=== PATIENT | female | born 1995 | race Caucasian/White ===

== ENCOUNTER 2023-08-23 10:45 | Emergency (ER) | payer BC ==
--- OUTSIDE RECORDS SUMMARY | 2023-08-23 10:53 | XMS REPORT | Continuity of Care Document ---
Author Name Unknown Address [address] [facility] [address] [place] [address] [facility] thconnect Address [address] [facility]. 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 Role Phone Makenzie Ferreira Primary Care Physician [phone] Doctor Unassigned, [place] Attending Clinician U navailable Lab, Ang - Db Attending Clinician Unavailable Olivia Cuevas Attending Clinician [phone] OLIVIA CASTRO Attending Clinician Unavailable MAR MARCIAL Attending Clinician UnavailMAR Beck Attending Clinician UnavailLEBRON Culver Attending Clinician Unavailable Lebron Douglas MD Attending Clinician [phone] Francois Boggs CRNA Attending Clinician [phone] Rachell Murphy MD Attending Clinician [phone] Ultrasound, [facility] Attending Clinician Unavaila Moreno Tubbs DOy Attending Clinician [phone] Makenzie Ferreira Attending Clinician [phone] Suhas Anderson MD Attending Clinician [phone] SUHAS ANDERSON Attending Clinician Unavailable Jeison MIRANDA, Eleanor Attending Clinician Unavailab MAKENZIE Garcia Attending Clinician Unavailable Nurse, [facility] Attending Clinician Un available DELMI SIMMONS Attending Clinician Unavailable G_Pappas Attending Clinician Unavailable Delmi Simmons PA-C Attending Clinician [phone] Only, [facility] Test Attending Clinician Unavailable 2, [facility] Attending Clinician Unavailable Deshaun Shore MD Attending Clinician Ultrasound, [facility] Mfm Attending Clinician Unavaila Francie Vital MD Attending Clinician [phone] [facility], [facility] Attending Clinician Unakalyan cheema Nurse, [facility] General Surgery Attending Clinician U navailable LEBRON DOUGLAS Admitting Clinician Unavailable Misael HAYES, Lebron Hutchinson Admitting Clinician [phone] Raman_Juan Ramon Admitting Clinician Unavailable Payers Payer Name Policy Type Policy Number Effective Date Expirati on Date Source [facility] - OUT OF STATE [id number] 2017 00:00:00 [place] [employer] [id number] 2022 00:00:00 [place] [id number] 2014 00:00:00 Problems Condition Name Condition Details Condition Category Status Onset Date Resolution Date Last Treatment Date Treating Clinician Comments Source Negative depression screening Negative depression screening Disease Active 3-03 00:00: 00 [facility] Encounter for care after hospital delivery Encounter for care after hospital delivery Disease Active 04-22 00:00: 00 [facility] Encounter for post surgical wound check Encounter for post surgical wound check Disease Active 04-22 00:00: 00 [facility] BMI 29.0-29.9, adult BMI 29.0-29.9, adult Disease Active 2-19 00:00: 00 [facility] Oral contracept ion initiation Oral contracept ion initiation Disease Active 2-06 00:00: 00 [facility] Liveborn infant, of cooper , born in hospital by delivery Liveborn , of cooper , born in hospital by delivery Disease Active 2-06 00:00: 00 [facility] Supervisio n of high-risk with insufficie nt care in third trimester Supervisio n of high-risk with insufficie nt care in third trimester Disease Active 2021-03 2-15 00:00: 00 [facility] Anxiety Anxiety Disease Active 1-06 00:00: 00 [facility] Depression , unspecifie d depression type Depression , unspecifie d depression type Disease Active 1-06 00:00: 00 [facility] 39 weeks gestation of 39 weeks gestation of Disease Active 2019-03 0-05 00:00: 00 [facility] Positive GBS test Positive GBS test Disease Active 2019-03 0-05 00:00: 00 [facility] Obesity (BMI 30-39.9) Obesity (BMI 30-39.9) Disease Active 6-24 00:00: 00 [facility] Vegetarian diet Vegetarian diet Disease Active 5-29 00:00: 00 [facility] Allergies, Adverse Reactions, Alerts Allergy Name Allergy Type Status Severity Reaction(s) Onset Date Inactive Date Treating Clinician Comments Source IBUPROFE N DRUG INGREDI Active N/V - 00:00: 00 [facility] Ibuprofe n Propensi ty to adverse reaction s Active Rash - 00:00: 00 [facility] PENICILL IN DRUG INGREDI Active Hallucinates 08-29 00:00: 00 [facility] Penicill in Propensi ty to adverse reaction s Active Hallucinatio ns 08-29 00:00: 00 [facility] Fentanyl Propensi ty to adverse reaction s Active Hallucinatio ns 03-08 00:00: 00 [facility] FENTANYL DRUG INGREDI Active Hallucinates 03-08 00:00: 00 [facility] Gelatin Propensi ty to adverse reaction s Active Other - See comments 04-24 00:00: 00 Vegetaria n and prefers not to have gelatin capsules [facility] GELATIN DRUG INGREDI Active Other-Cmnt 04-24 00:00: 00 [facility] Social History Social Habit Start Date Stop Date Quantity Comments Source ASSERTION 2021-07-22 00:00:00 [facility] Alcohol Std Drinks [facility] History SDOH Alcohol Comment Leadore o f [facility] History SDOH Alcohol Binge [facility] Alcohol intake 2023-05-23 00:00:00 2023-05-23 00:00:00 .29 /d [facility] Exposure to SARS-CoV-2 (event) 2022-04-24 00:00:00 2022-05-04 09:09:00 Not sure [facility] Tobacco use and exposure 2022-02-01 00:00:00 2022-02-01 00:00:00 Smokeless tobacco non-user [facility] History of Social function 2021-03-08 00:00:00 2021-03-08 00:00:00 [facility] Tobacco Comment 2021-03-08 00:00:00 2021-03-08 00:00:00 vaping daily [facility] History SDOH Alcohol Frequency 2019-05-06 00:00:00 2019-05-06 00:00:00 1 [facility] Sex Assigned At 1995 00:00:00 1995 00:00:00 [facility] Smoking Status Start Date Stop Date Source Never smoked tobacco [facility] Current every day smoker 2021-03-08 00:00:00 [facility] Medications Ordered Medication Name Filled Medication Name Start Date Stop Date Current Medication? Ordering Clinician Indication Dosage Frequency Signature (SIG) Comments Components Source norethindro ne (ORTHO MICRONOR) 0.35 mg tablet 3- 00:00: 00 05-22 00:00 :00 No [id number] .35mg Take 1 tablet by mouth in the morning. [facility] ibuprofen (IBU) tablet 600 mg 2- 18:00: 00 Yes 600mg 600 mg, Oral, Q6H ABX, First dose on Sat04/11/22 at 1200, Until Discontinu ed, Routine [facility] vit,judi 74/iron/fol ic ( VITAMIN 1+1 ORAL) 2 06:30: 19 04-11 00:00 :00 No Take by mouth. [facility] vitamin w/FA tablet 2- 00:00: 00 Yes [id number] 1{tbl} Take 1 tablet by mouth in the morning. [facility] vitamin w/FA tablet 04-11 00:00: 00 Yes [id number] 1{tbl} Take 1 tablet by mouth in the morning. [facility] acetaminoph en 325 mg tablet 2- 00:00: 00 05-22 00:00 :00 No [id number] 650mg Take 2 tablets by mouth every 6 (six) hours as needed for Pain (scale 1-3) or Pain (scale 4-6). [facility] docusate 100 mg capsule 2- 00:00: 00 05-22 00:00 :00 No [id number] 200mg Take 2 capsules by mouth once daily as needed for Constipati on. [facility] ferrous sulfate 325 mg (65 mg iron) tablet 2- 00:00: 00 05-22 00:00 :00 No [id number] 325mg Take 1 tablet by mouth in the morning and 1 tablet in the evening. [facility] ibuprofen 600 mg tablet 2-08 00:00: 00 05-22 00:00 :00 No [id number] 600mg Take 1 tablet by mouth every 6 (six) hours as needed (Pain). Take with food or milk. [facility] HYDROcodone -acetaminop hen 5-325 mg tablet 04-11 00:00: 00 04-19 05:59 :00 No [id number] 1{tbl} Take 1 tablet by mouth every 6 (six) hours as needed for Pain (scale 7-10) (Alternate with Ibuprofen) for up to 7 days. Indication s: acute pain [facility] gabapentin 300 mg capsule 04-11 00:00: 00 04-17 05:59 :00 No [id number] 300mg Take 1 capsule by mouth in the morning and 1 capsule at noon and 1 capsule in the evening. Do all this for 5 days. [facility] ketorolac (TORADOL) injection 30 mg 04-10 18:00: 00 04-11 17:59 :00 No 30mg 30 mg, Slow IV Push, Q6H ABX, 4 doses, First dose on Sat04/10/22 at 1200, Last dose on Sat04/11/22 at 0600, Routine [facility] HYDROcodone -acetaminop hen (NORCO 5) 5-325 mg tablet 1 tablet 04-10 15:00: 00 Yes 1{tbl} 1 tablet, Oral, Q6HPRN, Starting on Sat04/10/22 at 0900, Until Discontinu ed, Routine, Pain (scale 7-10), Alternate with Ibuprofen [facility] acetaminoph en (TYLENOL) tablet 650 mg 04-10 15:00: 00 Yes 650mg 650 mg, Oral, Q6H ABX, First dose (after last modificati on) on Sat04/10/22 at 0900, Until Discontinu ed, Routine [facility] gabapentin (NEURONTIN) capsule 300 mg 04-10 14:00: 00 Yes 300mg 300 mg, Oral, TID, First dose on Sat04/10/22 at 0800, Until Discontinu ed, Routine [facility] lactated ringers IV infusion 1,000 mL 04-10 03:45: 00 04-10 05:01 :10 No 1000mL at 125 mL/hr, 1,000 mL, IV Infusion, ONCE, 1 dose, On Sat04/09/22 at 2145, Routine [facility] rho(D) immune globulin (RHOGAM) syringe 300 mcg 04-10 03:31: 57 Yes 300ug 300 mcg, Intramuscu lar, ONCE, For 1 dose, Conditiona l, Routine [facility] diphenhydrA MINE (BENADRYL) injection 25 mg 04-10 03:31: 52 Yes 25mg 25 mg, Slow IV Push, Q6HPRN, Starting on Sat04/09/22 at 2130, Until Discontinu ed, Routine, Itching [facility] diphenhydrA MINE (BENADRYL) tablet 25 mg 04-10 03:31: 52 Yes 25mg 25 mg, Oral, Q6HPRN, Starting on Sat04/09/22 at 2130, Until Discontinu ed, Routine, Sleep, Itching [facility] ondansetron (ZOFRAN (PF)) injection 4 mg 04-10 03:31: 52 Yes 4mg 4 mg, Slow IV Push, Q8HPRN, Starting on Sat04/09/22 at 2130, Until Discontinu ed, Routine, Nausea and Vomiting (N/V) [facility] bisacodyL (DULCOLAX) suppository 10 mg 04-10 03:31: 52 Yes 10mg 10 mg, Rectal, QDAILYPRN, Starting on Sat04/09/22 at 213, Until Discontinu ed, Routine, Constipati on [facility] simethicone (GAS RELIEF (SIMETHICON E)) chewable tablet 160 mg 04-10 03:31: 52 Yes 160mg 160 mg, Oral, PC+HSPRN, Starting on Sat04/09/22 at 2130, Until Discontinu ed, Routine, Gas [facility] docusate (COLACE) capsule 200 mg 04-10 03:31: 52 Yes 200mg 200 mg, Oral, QDAILYPRN, Starting on Sat04/09/22 at 2131, Until Discontinu ed, Routine, Constipati on [facility] magnesium hydroxide (MILK OF MAGNESIA) 400 mg/5 mL suspension 30 mL 04-10 03:31: 52 Yes 30mL 30 mL, Oral, QDAILYPRN, Starting on Sat04/09/22 at 2131, Until Discontinu ed, Routine, Constipati on [facility] lactated ringers IV infusion 1,000 mL 04-10 03:31: 52 Yes 1000mL at 125 mL/hr, 1,000 mL, IV Infusion, PRN, 1 dose, Starting on Sat04/09/22 at 2131, Until Discontinu ed, Routine [facility] azithromyci n (ZITHROMAX) 500 mg in NaCl 0.9% (NS) 250 mL IV piggyback 04-10 02:40: 00 04-10 02:46 :08 No IV Piggyback, CONTINUOUS PRN, Starting on Sat04/09/22 at 2040, Until Sat04/09/22 at 2045, Administer over 60 Minutes, 250 mL, Intra-op [facility] acetaminoph en ADULT (OFIRMEV) injection 04-10 02:30: 00 04-10 02:46 :08 No IV Infusion, Administer over 15 Minutes, ONCE INTRA PROCEDURE, Starting on Sat04/09/22 at 2030, Until Sat04/09/22 at 2045, Routine, Intra-op [facility] ondansetron (ZOFRAN (PF)) injection 04-10 02:14: 00 04-10 02:46 :08 No Slow IV Push, ONCE INTRA PROCEDURE, Starting on Sat04/09/22 at 2014, Until Sat04/09/22 at 2045, Routine, Intra-op [facility] oxytocin (PITOCIN) injection 04-10 02:12: 00 04-10 02:46 :08 No IV Piggyback, ONCE INTRA PROCEDURE, Starting on Sat04/09/22 at 2012, Until Sat04/09/22 at 2045, Routine, Intra-op [facility] LR 1000 mL + oxytocin 40 units 40 unit/ 1,000 mL IV Solution 04-10 02:11: 00 04-10 02:46 :08 No IV Infusion, CONTINUOUS PRN, Starting on Sat04/09/22 at 2010, Until Sat04/09/22 at 2045, Routine, Intra-op [facility] morpHINE PF (DURAMORPH- PF) injection 04-10 01:59: 00 04-10 02:46 :08 No Epidural, ONCE INTRA PROCEDURE, Starting on Sat04/09/22 at 1959, Until Sat04/09/22 at 2045, Routine, Intra-op [facility] ceFAZolin (ANCEF) injection 04-10 01:58: 00 04-10 02:46 :08 No Slow IV Push, ONCE INTRA PROCEDURE, Starting on Sat04/09/22 at 1958, Until Sat04/09/22 at 2045, LEONID, Intra-op [facility] lactated ringers IV infusion 04-10 01:47: 00 04-10 02:46 :08 No IV Infusion, CONTINUOUS PRN, Starting on Sat04/09/22 at 1947, Until Sat04/09/22 at 2045, Routine, Intra-op [facility] lidocaine-e pinephrine (XYLOCAINE W/EPINEPHRI NE) 2 %-1:200,000 injection 04-10 01:47: 00 04-10 02:46 :08 No Epidural, ONCE INTRA PROCEDURE, Starting on Sat04/09/22 at 1947, Until Sat04/09/22 at 2045, Routine, Intra-op [facility] azithromyci n (ZITHROMAX) 500 mg in NaCl 0.9% (NS) 250 mL VIAL-MATE IV piggyback 04-10 01:11: 47 04-11 01:10 :47 No 500mg 500 mg, IV Piggyback, O.R. HOLDING ONCE, Starting on Sat04/09/22 at 1911, Until Sat04/10/22 at 1910, Administer over 60 Minutes, 250 mL
Reas on for Anti-Infec tive: Surgical Prophylaxi s
Surgi judi Prophylaxi s: INSTRUCTIONAL INTERVENTIONIST
Duration of therapy: within 24 hours of surgery
Reason for Anti-Infec tive: Surgical Prophylaxi s [facility] ceFAZolin (ANCEF) 2,000 mg in NaCl 0.9% (NS) 100 mL MINI-BAG 04-10 01:11: 35 04-11 01:10 :35 No 2000mg 2,000 mg, IV Piggyback, O.R. HOLDING ONCE, Starting on Sat04/09/22 at 1911, Until Sat04/10/22 at 1910, Administer over 30 Minutes, 100 mL
Reas on for Anti-Infec tive: Surgical Prophylaxi s
French rgical Prophylaxi s: INSTRUCTIONAL INTERVENTIONIST
Duration of therapy: within 24 hours of surgery [facility] terbutaline (BRETHINE) injection 0.25 mg 04-09 22:23: 00 04-09 22:26 :00 No .25mg 0.25 mg, Subcutaneo us, ONCE, 1 dose, On Sat04/09/22 at 1630, Routine [facility] PIB fentaNYL-ro pivacaine 2 mcg/mL-0.1 % (PF) in NS 200 mL epidural infusion RTU 04-09 22:20: 00 04-10 02:46 :08 No Epidural, ONCE INTRA PROCEDURE, Starting on Sat04/09/22 at 1620, Until Sat04/09/22 at 2046, Routine, Intra-op [facility] vit,judi 74/iron/fol ic ( VITAMIN 1+1 ORAL) 04-09 19:43: 45 Yes Take by mouth. [facility] PIB fentaNYL-ro pivacaine 2 mcg/mL-0.1 % (PF) in NS 200 mL epidural infusion RTU 04-09 16:16: 00 04-10 02:46 :08 No Epidural, ONCE INTRA PROCEDURE, Starting on Sat04/09/22 at 1016, Until Sat04/09/22 at 2045, Routine, Intra-op [facility] lidocaine-e pinephrine (XYLOCAINE W/EPINEPHRI NE) 1.5 %-1:200,000 injection 04-09 16:15: 00 04-10 02:46 :08 No Intraderma l, ONCE INTRA PROCEDURE, Starting on Sat04/09/22 at 1015, Until Sat04/09/22 at 2045, Routine, Intra-op [facility] lidocaine 1% (XYLOCAINE) 100 mg/10 mL (1 %) injection 04-09 16:12: 00 04-10 02:46 :08 No Infiltrati on, ONCE INTRA PROCEDURE, Starting on Sat04/09/22 at 1012, Until Sat04/09/22 at 2045, Routine, Intra-op [facility] diphenhydrA MINE (BENADRYL) injection 50 mg 04-09 13:36: 20 04-09 16:29 :38 No 50mg 50 mg, Intravenou s, PRN, 3 doses, Starting on Sat04/09/22 at 0736, Until Sat04/09/22 at 1029, Routine, Itching [facility] oxytocin (PITOCIN) 30 units in NS 500 mL IV infusion 04-09 12:14: 07 04-10 03:32 :07 No 2mU/min at 2-40 mL/hr, IV Infusion, TITRATE, Starting on Sat04/09/22 at 0614, Until Sat04/09/22 at 2132, LEONID [facility] vancomycin (VANCOCIN) 1,500 mg in NaCl 0.9% (NS) 500 mL VIAL-MATE IV piggyback 04-09 11:30: 00 04-10 14:50 :16 No 20mg/kg 1,500 mg (rounded from 1,678 mg = 20 mg/kg ?84.9 kg), IV Piggyback, Q8H ABX, 4 doses, First dose on Sat04/09/22 at 0530, Last dose on Sat04/10/22 at 0530, Administer over 90 Minutes, 500 mL
Reas on for Anti-Infec tive: Documented Infection< br>Documen cr Infection Site: Pelvic
Duration of Therapy: Other (see Comments) [facility] lidocaine 1% (XYLOCAINE) 10 mg/mL (1 %) injection 50 mL 04-09 10:19: 48 Yes 50mL 50 mL, Infiltrati on, PRN - SEE INSTRUCTIO NS, Starting on Sat04/09/22 at 041, Until Discontinu ed, Routine, Local anesthesia , For laceration repair only as a local anesthetic as indicated. [facility] lactated ringers IV infusion 500 mL 04-09 10:19: 48 Yes 500mL at 999 mL/hr, 500 mL, IV Infusion, PRN - SEE INSTRUCTIO NS, Starting on Sat04/09/22 at 418, Until Discontinu ed, Routine [facility] D5W-LR IV infusion 1,000 mL 04-09 10:19: 48 Yes 1000mL at 1-125 mL/hr, IV Infusion, TITRATE, Starting on Sat04/09/22 at 041, Until Discontinu ed, Routine [facility] sodium citrate-cit paras acid (BICITRA) 500-334 mg/5 mL solution 30 mL 04-09 10:19: 48 04-10 01:40 :00 No 30mL 30 mL, Oral, PRE-PROCED URE ONCE, 1 dose, Starting on Sat04/09/22 at 418, Until Discontinu ed, Routine, Surgery/Pr ocedure [facility] vit,judi 74/iron/fol ic ( VITAMIN 1+1 ORAL) 04-09 04:12: 36 Yes Take by mouth. [facility] vit,judi 74/iron/fol ic ( VITAMIN 1+1 ORAL) 2021-03 16:03: 52 Yes Take by mouth. [facility] ondansetron 4 mg disintegrat ing tablet 09-06 00:00: 00 04-11 00:00 :00 No [id number] 4mg Take 1 tablet by mouth every 8 (eight) hours as needed for Nausea and Vomiting (N/V). [facility] vit,judi 74/iron/fol ic ( VITAMIN 1+1 ORAL) 6 14:43: 37 Yes Take by mouth. [facility] busPIRone 10 mg tablet 07-28 00:00: 00 05-22 00:00 :00 No [id number] 10mg Take 1 tablet by mouth 2 (two) times daily as needed for Other (anxiety). [facility] DULoxetine 30 mg capsule 07-28 00:00: 00 05-22 00:00 :00 No [id number] 30mg Take 1 capsule by mouth daily. [facility] busPIRone 10 mg tablet - 00:00: 00 07-28 00:00 :00 No [id number] 10mg Take 1 tablet by mouth 2 (two) times daily as needed for Other (anxiety). [facility] DULoxetine 30 mg capsule 0 4- 00:00: 00 07-28 00:00 :00 No [id number] 30mg Take 1 capsule by mouth daily. [facility] DULoxetine 30 mg capsule 0 - 00:00: 00 06-23 00:00 :00 No [id number] 30mg Take 1 capsule by mouth daily. [facility] busPIRone 10 mg tablet 0 - 00:00: 00 06-23 00:00 :00 No [id number] 10mg Take 1 tablet by mouth 2 (two) times daily as needed for Other (anxiety) for up to 45 days. [facility] Immunizations Ordered Immunization Name Filled Immunization Name Date Status Comments Source TDAP 2022-03-05 00:00:00 Completed [facility] TDAP 2022-03-05 00:00:00 Completed [facility] TDAP 2022-03-05 00:00:00 Completed [facility] TDAP 2022-03-05 00:00:00 Completed [facility] TDAP 2022-03-05 00:00:00 Completed [facility] TDAP 2022-03-05 00:00:00 Completed [facility] TDAP 2022-03-05 00:00:00 Completed [facility] TDAP 2022-03-05 00:00:00 Completed [facility] TDAP 2022-03-05 00:00:00 Completed [facility] TDAP 2022-03-05 00:00:00 Completed [facility] TDAP 2022-03-05 00:00:00 Completed [facility] TDAP 2022-03-05 00:00:00 Completed [facility] TDAP 2022-03-05 00:00:00 Completed [facility] TDAP 2022-03-05 00:00:00 Completed [facility] TDAP 2022-03-05 00:00:00 Completed [facility] TDAP 2022-03-05 00:00:00 Completed [facility] TDAP 2022-03-05 00:00:00 Completed [facility] TDAP 2022-03-05 00:00:00 Completed [facility] Influenza Virus Vaccine Quad .5 mL IM 6+ MO 2019-05-06 00:00:00 Completed [facility] Influenza Virus Vaccine Quad .5 mL IM 6+ MO 2019-05-06 00:00:00 Completed [facility] Influenza Virus Vaccine Quad .5 mL IM 6+ MO 2019-05-06 00:00:00 Completed [facility] Influenza Virus Vaccine Quad .5 mL IM 6+ MO 2019-05-06 00:00:00 Completed [facility] Influenza Virus Vaccine Quad .5 mL IM 6+ MO 2019-05-06 00:00:00 Completed [facility] Influenza Virus Vaccine Quad .5 mL IM 6+ MO 2019-05-06 00:00:00 Completed [facility] Influenza Virus Vaccine Quad .5 mL IM 6+ MO 2019-05-06 00:00:00 Completed [facility] Influenza Virus Vaccine Quad .5 mL IM 6+ MO 2019-05-06 00:00:00 Completed [facility] Influenza Virus Vaccine Quad .5 mL IM 6+ MO 2019-05-06 00:00:00 Completed [facility] Influenza Virus Vaccine Quad .5 mL IM 6+ MO 2019-05-06 00:00:00 Completed [facility] Influenza Virus Vaccine Quad .5 mL IM 6+ MO 2019-05-06 00:00:00 Completed [facility] Influenza Virus Vaccine Quad .5 mL IM 6+ MO 2019-05-06 00:00:00 Completed [facility] Influenza Virus Vaccine Quad .5 mL IM 6+ MO 2019-05-06 00:00:00 Completed [facility] Influenza Virus Vaccine Quad .5 mL IM 6+ MO 2019-05-06 00:00:00 Completed [facility] Influenza Virus Vaccine Quad .5 mL IM 6+ MO 2019-05-06 00:00:00 Completed [facility] Influenza Virus Vaccine Quad .5 mL IM 6+ MO 2019-05-06 00:00:00 Completed [facility] Influenza Virus Vaccine Quad .5 mL IM 6+ MO 2019-05-06 00:00:00 Completed [facility] Influenza Virus Vaccine Quad .5 mL IM 6+ MO 2019-05-06 00:00:00 Completed [facility] Influenza Virus Vaccine Quad .5 mL IM 6+ MO 2019-05-06 00:00:00 Completed [facility] Influenza Virus Vaccine Quad .5 mL IM 6+ MO 2019-05-06 00:00:00 Completed [facility] Influenza Virus Vaccine Quad .5 mL IM 6+ MO 2019-05-06 00:00:00 Completed [facility] Influenza Virus Vaccine Quad .5 mL IM 6+ MO 2019-05-06 00:00:00 Completed [facility] Influenza Virus Vaccine Quad .5 mL IM 6+ MO 2019-05-06 00:00:00 Completed [facility] Influenza Virus Vaccine Quad .5 mL IM 6+ MO 2019-05-06 00:00:00 Completed [facility] Influenza Virus Vaccine Quad .5 mL IM 6+ MO 2019-05-06 00:00:00 Completed [facility] Influenza Virus Vaccine Quad .5 mL IM 6+ MO 2019-05-06 00:00:00 Completed [facility] Influenza Virus Vaccine Quad .5 mL IM 6+ MO 2019-05-06 00:00:00 Completed [facility] Influenza Virus Vaccine Quad .5 mL IM 6+ MO 2019-05-06 00:00:00 Completed [facility] Influenza Virus Vaccine Quad .5 mL IM 6+ MO 2019-05-06 00:00:00 Completed [facility] Influenza Virus Vaccine Quad .5 mL IM 6+ MO 2019-05-06 00:00:00 Completed [facility] Influenza Virus Vaccine Quad .5 mL IM 6+ MO 2019-05-06 00:00:00 Completed [facility] Influenza Virus Vaccine Quad .5 mL IM 6+ MO 2019-05-06 00:00:00 Completed [facility] Influenza Virus Vaccine Quad .5 mL IM 6+ MO 2019-05-06 00:00:00 Completed [facility] Influenza Virus Vaccine Quad .5 mL IM 6+ MO 2019-05-06 00:00:00 Completed [facility] Influenza Virus Vaccine Quad .5 mL IM 6+ MO 2019-05-06 00:00:00 Completed [facility] HPV 2010-02-15 00:00:00 Completed [facility] HPV 2010-02-15 00:00:00 Completed [facility] HPV 2010-02-15 00:00:00 Completed [facility] HPV 2010-02-15 00:00:00 Completed [facility] HPV 2010-02-15 00:00:00 Completed [facility] HPV 2010-02-15 00:00:00 Completed [facility] HPV 2010-02-15 00:00:00 Completed [facility] HPV 2010-02-15 00:00:00 Completed [facility] HPV 2010-02-15 00:00:00 Completed [facility] HPV 2010-02-15 00:00:00 Completed [facility] HPV 2010-02-15 00:00:00 Completed [facility] HPV 2010-02-15 00:00:00 Completed [facility] HPV 2010-02-15 00:00:00 Completed [facility] HPV 2010-02-15 00:00:00 Completed [facility] HPV 2010-02-15 00:00:00 Completed [facility] HPV 2010-02-15 00:00:00 Completed [facility] [facility]15 [facility]:00 [facility] HPV 2010-02-15 00:00:00 Completed [facility] HPV 2010-02-15 00:00:00 Completed [facility] HPV 2010-02-15 00:00:00 Completed [facility] HPV 2010-02-15 00:00:00 Completed [facility] HPV 2010-02-15 00:00:00 Completed [facility] HPV 2010-02-15 00:00:00 Completed [facility] HPV 2010-02-15 00:00:00 Completed [facility] HPV 2010-02-15 00:00:00 Completed [facility] Varicella (varivax)(chicken pox) 2009-10-20 00:00:00 Completed [facility] TDAP 2009-10-20 00:00:00 Completed [facility] Meningococcal Polysaccharide (groups A, C, Y and W-135) conjugate vaccine (MCV4P) 2009-10-20 00:00:00 Completed [facility] HPV 2009-10-20 00:00:00 Completed [facility] HEPATITIS A 2009-10-20 00:00:00 Completed [facility] Varicella (varivax)(chicken pox) 2009-10-20 00:00:00 Completed [facility] TDAP 2009-10-20 00:00:00 Completed [facility] Meningococcal Polysaccharide (groups A, C, Y and W-135) conjugate vaccine (MCV4P) 2009-10-20 00:00:00 Completed [facility] HPV 2009-10-20 00:00:00 Completed [facility] HEPATITIS A 2009-10-20 00:00:00 Completed [facility] Varicella (varivax)(chicken pox) 2009-10-20 00:00:00 Completed [facility] TDAP 2009-10-20 00:00:00 Completed [facility] Meningococcal Polysaccharide (groups A, C, Y and W-135) conjugate vaccine (MCV4P) 2009-10-20 00:00:00 Completed [facility] HPV 2009-10-20 00:00:00 Completed [facility] HEPATITIS A 2009-10-20 00:00:00 Completed [facility] Varicella (varivax)(chicken pox) 2009-10-20 00:00:00 Completed [facility] TDAP 2009-10-20 00:00:00 Completed [facility] Meningococcal Polysaccharide (groups A, C, Y and W-135) conjugate vaccine (MCV4P) 2009-10-20 00:00:00 Completed [facility] HPV 2009-10-20 00:00:00 Completed [facility] HEPATITIS A 2009-10-20 00:00:00 Completed [facility] Varicella (varivax)(chicken pox) 2009-10-20 00:00:00 Completed [facility] TDAP 2009-10-20 00:00:00 Completed [facility] Meningococcal Polysaccharide (groups A, C, Y and W-135) conjugate vaccine (MCV4P) 2009-10-20 00:00:00 Completed [facility] HPV 2009-10-20 00:00:00 Completed [facility] HEPATITIS A 2009-10-20 00:00:00 Completed [facility] Varicella (varivax)(chicken pox) 2009-10-20 00:00:00 Completed [facility] TDAP 2009-10-20 00:00:00 Completed [facility] Meningococcal Polysaccharide (groups A, C, Y and W-135) conjugate vaccine (MCV4P) 2009-10-20 00:00:00 Completed [facility] HPV 2009-10-20 00:00:00 Completed [facility] HEPATITIS A 2009-10-20 00:00:00 Completed [facility] Varicella (varivax)(chicken pox) 2009-10-20 00:00:00 Completed [facility] TDAP 2009-10-20 00:00:00 Completed [facility] Meningococcal Polysaccharide (groups A, C, Y and W-135) conjugate vaccine (MCV4P) 2009-10-20 00:00:00 Completed [facility] HPV 2009-10-20 00:00:00 Completed [facility] HEPATITIS A 2009-10-20 00:00:00 Completed [facility] Varicella (varivax)(chicken pox) 2009-10-20 00:00:00 Completed [facility] TDAP 2009-10-20 00:00:00 Completed [facility] Meningococcal Polysaccharide (groups A, C, Y and W-135) conjugate vaccine (MCV4P) 2009-10-20 00:00:00 Completed [facility] HPV 2009-10-20 00:00:00 Completed [facility] HEPATITIS A 2009-10-20 00:00:00 Completed [facility] Varicella (varivax)(chicken pox) 2009-10-20 00:00:00 Completed [facility] TDAP 2009-10-20 00:00:00 Completed [facility] Meningococcal Polysaccharide (groups A, C, Y and W-135) conjugate vaccine (MCV4P) 2009-10-20 00:00:00 Completed [facility] HPV 2009-10-20 00:00:00 Completed [facility] HEPATITIS A 2009-10-20 00:00:00 Completed [facility] Varicella (varivax)(chicken pox) 2009-10-20 00:00:00 Completed [facility] TDAP 2009-10-20 00:00:00 Completed [facility] Meningococcal Polysaccharide (groups A, C, Y and W-135) conjugate vaccine (MCV4P) 2009-10-20 00:00:00 Completed [facility] HPV 2009-10-20 00:00:00 Completed [facility] HEPATITIS A 2009-10-20 00:00:00 Completed [facility] Varicella (varivax)(chicken pox) 2009-10-20 00:00:00 Completed [facility] TDAP 2009-10-20 00:00:00 Completed [facility] Meningococcal Polysaccharide (groups A, C, Y and W-135) conjugate vaccine (MCV4P) 2009-10-20 00:00:00 Completed [facility] HPV 2009-10-20 00:00:00 Completed [facility] HEPATITIS A 2009-10-20 00:00:00 Completed [facility] Varicella (varivax)(chicken pox) 2009-10-20 00:00:00 Completed [facility] TDAP 2009-10-20 00:00:00 Completed [facility] Meningococcal Polysaccharide (groups A, C, Y and W-135) conjugate vaccine (MCV4P) 2009-10-20 00:00:00 Completed [facility] HPV 2009-10-20 00:00:00 Completed [facility] HEPATITIS A 2009-10-20 00:00:00 Completed [facility] Varicella (varivax)(chicken pox) 2009-10-20 00:00:00 Completed [facility] TDAP 2009-10-20 00:00:00 Completed [facility] Meningococcal Polysaccharide (groups A, C, Y and W-135) conjugate vaccine (MCV4P) 2009-10-20 00:00:00 Completed [facility] HPV 2009-10-20 00:00:00 Completed [facility] HEPATITIS A 2009-10-20 00:00:00 Completed [facility] Varicella (varivax)(chicken pox) 2009-10-20 00:00:00 Completed [facility] TDAP 2009-10-20 00:00:00 Completed [facility] Meningococcal Polysaccharide (groups A, C, Y and W-135) conjugate vaccine (MCV4P) 2009-10-20 00:00:00 Completed [facility] HPV 2009-10-20 00:00:00 Completed [facility] HEPATITIS A 2009-10-20 00:00:00 Completed [facility] Varicella (varivax)(chicken pox) 2009-10-20 00:00:00 Completed [facility] TDAP 2009-10-20 00:00:00 Completed [facility] Meningococcal Polysaccharide (groups A, C, Y and W-135) conjugate vaccine (MCV4P) 2009-10-20 00:00:00 Completed [facility] HPV 2009-10-20 00:00:00 Completed [facility] HEPATITIS A 2009-10-20 00:00:00 Completed [facility] Varicella (varivax)(chicken pox) 2009-10-20 00:00:00 Completed [facility] TDAP 2009-10-20 00:00:00 Completed [facility] Meningococcal Polysaccharide (groups A, C, Y and W-135) conjugate vaccine (MCV4P) 2009-10-20 00:00:00 Completed [facility] HPV 2009-10-20 00:00:00 Completed [facility] HEPATITIS A 2009-10-20 00:00:00 Completed [facility] Varicella (varivax)(chicken pox) 2009-10-20 00:00:00 Completed [facility] TDAP 2009-10-20 00:00:00 Completed [facility] Meningococcal Polysaccharide (groups A, C, Y and W-135) conjugate vaccine (MCV4P) 2009-10-20 00:00:00 Completed [facility] HPV 2009-10-20 00:00:00 Completed [facility] HEPATITIS A 2009-10-20 00:00:00 Completed [facility] Varicella (varivax)(chicken pox) 2009-10-20 00:00:00 Completed [facility] TDAP 2009-10-20 00:00:00 Completed [facility] Meningococcal Polysaccharide (groups A, C, Y and W-135) conjugate vaccine (MCV4P) 2009-10-20 00:00:00 Completed [facility] HPV 2009-10-20 00:00:00 Completed [facility] HEPATITIS A 2009-10-20 00:00:00 Completed [facility] Varicella (varivax)(chicken pox) 2009-10-20 00:00:00 Completed [facility] TDAP 2009-10-20 00:00:00 Completed [facility] Meningococcal Polysaccharide (groups A, C, Y and W-135) conjugate vaccine (MCV4P) 2009-10-20 00:00:00 Completed [facility] HPV 2009-10-20 00:00:00 Completed [facility] HEPATITIS A 2009-10-20 00:00:00 Completed [facility] Varicella (varivax)(chicken pox) 2009-10-20 00:00:00 Completed [facility] TDAP 2009-10-20 00:00:00 Completed [facility] Meningococcal Polysaccharide (groups A, C, Y and W-135) conjugate vaccine (MCV4P) 2009-10-20 00:00:00 Completed [facility] HPV 2009-10-20 00:00:00 Completed [facility] HEPATITIS A 2009-10-20 00:00:00 Completed [facility] Varicella (varivax)(chicken pox) 2009-10-20 00:00:00 Completed [facility] TDAP 2009-10-20 00:00:00 Completed [facility] Meningococcal Polysaccharide (groups A, C, Y and W-135) conjugate vaccine (MCV4P) 2009-10-20 00:00:00 Completed [facility] HPV 2009-10-20 00:00:00 Completed [facility] HEPATITIS A 2009-10-20 00:00:00 Completed [facility] Varicella (varivax)(chicken pox) 2009-10-20 00:00:00 Completed [facility] TDAP 2009-10-20 00:00:00 Completed [facility] Meningococcal Polysaccharide (groups A, C, Y and W-135) conjugate vaccine (MCV4P) 2009-10-20 00:00:00 Completed [facility] HPV 2009-10-20 00:00:00 Completed [facility] HEPATITIS A 2009-10-20 00:00:00 Completed [facility] Varicella (varivax)(chicken pox) 2009-10-20 00:00:00 Completed [facility] TDAP 2009-10-20 00:00:00 Completed [facility] Meningococcal Polysaccharide (groups A, C, Y and W-135) conjugate vaccine (MCV4P) 2009-10-20 00:00:00 Completed [facility] HPV 2009-10-20 00:00:00 Completed [facility] HEPATITIS A 2009-10-20 00:00:00 Completed [facility] Varicella (varivax)(chicken pox) 2009-10-20 00:00:00 Completed [facility] TDAP 2009-10-20 00:00:00 Completed [facility] Meningococcal Polysaccharide (groups A, C, Y and W-135) conjugate vaccine (MCV4P) 2009-10-20 00:00:00 Completed [facility] HPV 2009-10-20 00:00:00 Completed [facility] HEPATITIS A 2009-10-20 00:00:00 Completed [facility] Varicella (varivax)(chicken pox) 2009-10-20 00:00:00 Completed [facility] TDAP 2009-10-20 00:00:00 Completed [facility] Meningococcal Polysaccharide (groups A, C, Y and W-135) conjugate vaccine (MCV4P) 2009-10-20 00:00:00 Completed [facility] HPV 2009-10-20 00:00:00 Completed [facility] HEPATITIS A 2009-10-20 00:00:00 Completed [facility] IPV 2001-12-17 00:00:00 Completed [facility] MMR 2001-12-17 00:00:00 Completed [facility] DTaP, Unspecified Formulation 2001-12-17 00:00:00 Completed [facility] IPV 2001-12-17 00:00:00 Completed [facility] MMR 2001-12-17 00:00:00 Completed [facility] DTaP, Unspecified Formulation 2001-12-17 00:00:00 Completed [facility] IPV 2001-12-17 00:00:00 Completed [facility] MMR 2001-12-17 00:00:00 Completed [facility] DTaP, Unspecified Formulation 2001-12-17 00:00:00 Completed [facility] IPV 2001-12-17 00:00:00 Completed [facility] MMR 2001-12-17 00:00:00 Completed [facility] DTaP, Unspecified Formulation 2001-12-17 00:00:00 Completed [facility] IPV 2001-12-17 00:00:00 Completed [facility] MMR 2001-12-17 00:00:00 Completed [facility] DTaP, Unspecified Formulation 2001-12-17 00:00:00 Completed [facility] IPV 2001-12-17 00:00:00 Completed [facility] MMR 2001-12-17 00:00:00 Completed [facility] DTaP, Unspecified Formulation 2001-12-17 00:00:00 Completed [facility] IPV 2001-12-17 00:00:00 Completed [facility] MMR 2001-12-17 00:00:00 Completed [facility] DTaP, Unspecified Formulation 2001-12-17 00:00:00 Completed [facility] IPV 2001-12-17 00:00:00 Completed [facility] MMR 2001-12-17 00:00:00 Completed [facility] DTaP, Unspecified Formulation 2001-12-17 00:00:00 Completed [facility] IPV 2001-12-17 00:00:00 Completed [facility] MMR 2001-12-17 00:00:00 Completed [facility] DTaP, Unspecified Formulation 2001-12-17 00:00:00 Completed [facility] IPV 2001-12-17 00:00:[address] [facility] MMR 2001-12-17 00:00:[address] [facility] DTaP, Unspecified Formulation 2001-12-17 00:00:00 Completed [facility] IPV 2001-12-17 00:00:00 Completed [facility] MMR 2001-12-17 00:00:00 Completed [facility] DTaP, Unspecified Formulation 2001-12-17 00:00:00 Completed [facility] IPV 2001-12-17 00:00:00 Completed [facility] MMR 2001-12-17 00:00:00 Completed [facility] DTaP, Unspecified Formulation 2001-12-17 00:00:00 Completed [facility] IPV 2001-12-17 00:00:00 Completed [facility] MMR 2001-12-17 00:00:00 Completed [facility] DTaP, Unspecified Formulation 2001-12-17 00:00:00 Completed [facility] IPV 2001-12-17 00:00:00 Completed [facility] MMR 2001-12-17 00:00:00 Completed [facility] DTaP, Unspecified Formulation 2001-12-17 00:00:00 Completed [facility] IPV 2001-12-17 00:00:00 Completed [facility] MMR 2001-12-17 00:00:00 Completed [facility] DTaP, Unspecified Formulation 2001-12-17 00:00:00 Completed [facility] IPV 2001-12-17 00:00:00 Completed [facility] MMR 2001-12-17 00:00:[address] [facility] DTaP, Unspecified Formulation 2001-12-17 00:00:00 Completed [facility] IPV 2001-12-17 00:00:00 Completed [facility] MMR 2001-12-17 00:00:00 Completed [facility] DTaP, Unspecified Formulation 2001-12-17 00:00:00 Completed [facility] IPV 2001-12-17 00:00:00 Completed [facility] MMR 2001-12-17 00:00:00 Completed [facility] DTaP, Unspecified Formulation 2001-12-17 00:00:00 Completed [facility] IPV 2001-12-17 00:00:00 Completed [facility] MMR 2001-12-17 00:00:[address] [facility] DTaP, Unspecified Formulation 2001-12-17 00:00:00 Completed [facility] IPV 2001-12-17 00:00:00 Completed [facility] MMR 2001-12-17 00:00:00 Completed [facility] DTaP, Unspecified Formulation 2001-12-17 00:00:00 Completed [facility] IPV 2001-12-17 00:00:00 Completed [facility] MMR 2001-12-17 00:00:00 Completed [facility] DTaP, Unspecified Formulation 2001-12-17 00:00:00 Completed [facility] IPV 2001-12-17 00:00:00 Completed [facility] MMR 2001-12-17 00:00:00 Completed [facility] DTaP, Unspecified Formulation 2001-12-17 00:00:00 Completed [facility] IPV 2001-12-17 00:00:00 Completed [facility] MMR 2001-12-17 00:00:00 Completed [facility] DTaP, Unspecified Formulation 2001-12-17 00:00:00 Completed [facility] IPV 2001-12-17 00:00:00 Completed [facility] MMR 2001-12-17 00:00:00 Completed [facility] DTaP, Unspecified Formulation 2001-12-17 00:00:00 Completed [facility] IPV 2001-12-17 00:00:00 Completed [facility] MMR 2001-12-17 00:00:00 Completed [facility] DTaP, Unspecified Formulation 2001-12-17 00:00:00 Completed [facility] Hep B, Adol or Pedi Dosage 1999-12-12 00:00:00 Completed [facility] DTP 1999-12-12 00:00:00 Completed [facility] Hib-HbOC 1999-12-12 00:00:00 Completed [facility] Hep B, Adol or Pedi Dosage 1999-12-12 00:00:00 Completed [facility] DTP 1999-12-12 00:00:00 Completed [facility] Hib-HbOC 1999-12-12 00:00:00 Completed [facility] Hep B, Adol or Pedi Dosage 1999-12-12 00:00:00 Completed [facility] DTP 1999-12-12 00:00:00 Completed [facility] Hib-HbOC 1999-12-12 00:00:00 Completed [facility] Hep B, Adol or Pedi Dosage 1999-12-12 00:00:00 Completed [facility] DTP 1999-12-12 00:00:00 Completed [facility] Hib-HbOC 1999-12-12 00:00:00 Completed [facility] Hep B, Adol or Pedi Dosage 1999-12-12 00:00:00 Completed [facility] DTP 1999-12-12 00:00:00 Completed [facility] Hib-HbOC 1999-12-12 00:00:00 Completed [facility] Hep B, Adol or Pedi Dosage 1999-12-12 00:00:00 Completed [facility] DTP 1999-12-12 00:00:00 Completed [facility] Hib-HbOC 1999-12-12 00:00:00 Completed [facility] Hep B, Adol or Pedi Dosage 1999-12-12 00:00:00 Completed [facility] DTP 1999-12-12 00:00:00 Completed [facility] Hib-HbOC 1999-12-12 00:00:00 Completed [facility] Hep B, Adol or Pedi Dosage 1999-12-12 00:00:00 Completed [facility] DTP 1999-12-12 00:00:00 Completed [facility] Hib-HbOC 1999-12-12 00:00:00 Completed [facility] Hep B, Adol or Pedi Dosage 1999-12-12 00:00:00 Completed [facility] DTP 1999-12-12 00:00:00 Completed [facility] Hib-HbOC 1999-12-12 00:00:00 Completed [facility] Hep B, Adol or Pedi Dosage 1999-12-12 00:00:00 Completed [facility] DTP 1999-12-12 00:00:00 Completed [facility] Hib-HbOC 1999-12-12 00:00:00 Completed [facility] Hep B, Adol or Pedi Dosage 1999-12-12 00:00:00 Completed [facility] DTP 1999-12-12 00:00:00 Completed [facility] Hib-HbOC 1999-12-12 00:00:00 Completed [facility] Hep B, Adol or Pedi Dosage 1999-12-12 00:00:00 Completed [facility] DTP 1999-12-12 00:00:00 Completed [facility] Hib-HbOC 1999-12-12 00:00:00 Completed [facility] Hep B, Adol or Pedi Dosage 1999-12-12 00:00:00 Completed [facility] DTP 1999-12-12 00:00:00 Completed [facility] Hib-HbOC 1999-12-12 00:00:00 Completed [facility] Hep B, Adol or Pedi Dosage 1999-12-12 00:00:00 Completed [facility] DTP 1999-12-12 00:00:00 Completed [facility] Hib-HbOC 1999-12-12 00:00:00 Completed [facility] Hep B, Adol or Pedi Dosage 1999-12-12 00:00:00 Completed [facility] DTP 1999-12-12 00:00:00 Completed [facility] Hib-HbOC 1999-12-12 00:00:00 Completed [facility] Hep B, Adol or Pedi Dosage 1999-12-12 00:00:00 Completed [facility] DTP 1999-12-12 00:00:00 Completed [facility] Hib-HbOC 1999-12-12 00:00:00 Completed [facility] Hep B, Adol or Pedi Dosage 1999-12-12 00:00:00 Completed [facility] DTP 1999-12-12 00:00:00 Completed [facility] Hib-HbOC 1999-12-12 00:00:00 Completed [facility] Hep B, Adol or Pedi Dosage 1999-12-12 00:00:00 Completed [facility] DTP 1999-12-12 00:00:00 Completed [facility] Hib-HbOC 1999-12-12 00:00:00 Completed [facility] Hep B, Adol or Pedi Dosage 1999-12-12 00:00:00 Completed [facility] DTP 1999-12-12 00:00:00 Completed [facility] Hib-HbOC 1999-12-12 00:00:00 Completed [facility] Hep B, Adol or Pedi Dosage 1999-12-12 00:00:00 Completed [facility] DTP 1999-12-12 00:00:00 Completed [facility] Hib-HbOC 1999-12-12 00:00:00 Completed [facility] Hep B, Adol or Pedi Dosage 1999-12-12 00:00:00 Completed [facility] DTP 1999-12-12 00:00:00 Completed [facility] Hib-HbOC 1999-12-12 00:00:00 Completed [facility] Hep B, Adol or Pedi Dosage 1999-12-12 00:00:00 Completed [facility] DTP 1999-12-12 00:00:00 Completed [facility] Hib-HbOC 1999-12-12 00:00:00 Completed [facility] Hep B, Adol or Pedi Dosage 1999-12-12 00:00:00 Completed [facility] DTP 1999-12-12 00:00:00 Completed [facility] Hib-HbOC 1999-12-12 00:00:00 Completed [facility] Hep B, Adol or Pedi Dosage 1999-12-12 00:00:00 Completed [facility] DTP 1999-12-12 00:00:00 Completed [facility] Hib-HbOC 1999-12-12 00:00:00 Completed [facility] Hep B, Adol or Pedi Dosage 1999-12-12 00:00:00 Completed [facility] DTP 1999-12-12 00:00:00 Completed [facility] Hib-HbOC 1999-12-12 00:00:00 Completed [facility] Varicella (varivax)(chicken pox) 1998-09-13 00:00:00 Completed [facility] 1998-09-13 00:00:00 Completed [facility] Varicella (varivax)(chicken pox) 1998-09-13 00:00:00 Completed [facility] 1998-09-13 00:00:00 Completed [facility] Varicella (varivax)(chicken pox) 1998-09-13 00:00:00 Completed [facility] 1998-09-13 00:00:00 Completed [facility] Varicella (varivax)(chicken pox) 1998-09-13 00:00:00 Completed [facility] 1998-09-13 00:00:00 Completed [facility] Varicella (varivax)(chicken pox) 1998-09-13 00:00:00 Completed [facility] 1998-09-13 00:00:00 Completed [facility] Varicella (varivax)(chicken pox) 1998-09-13 00:00:00 Completed [facility] 1998-09-13 00:00:00 Completed [facility] Varicella (varivax)(chicken pox) 1998-09-13 00:00:00 Completed [facility] 1998-09-13 00:00:00 Completed [facility] Varicella (varivax)(chicken pox) 1998-09-13 00:00:00 Completed [facility] 1998-09-13 00:00:00 Completed [facility] Varicella (varivax)(chicken pox) 1998-09-13 00:00:00 Completed [facility] 1998-09-13 00:00:00 Completed [facility] Varicella (varivax)(chicken pox) 1998-09-13 00:00:00 Completed [facility] 1998-09-13 00:00:00 Completed [facility] Varicella (varivax)(chicken pox) 1998-09-13 00:00:00 Completed [facility] 1998-09-13 00:00:00 Completed [facility] Varicella (varivax)(chicken pox) 1998-09-13 00:00:00 Completed [facility] 1998-09-13 00:00:00 Completed [facility] Varicella (varivax)(chicken pox) 1998-09-13 00:00:00 Completed [facility] 1998-09-13 00:00:00 Completed [facility] Varicella (varivax)(chicken pox) 1998-09-13 00:00:00 Completed [facility] 1998-09-13 00:00:00 Completed [facility] Varicella (varivax)(chicken pox) 1998-09-13 00:00:00 Completed [facility] 1998-09-13 00:00:00 Completed [facility] Varicella (varivax)(chicken pox) 1998-09-13 00:00:00 Completed [facility] 1998-09-13 00:00:00 Completed [facility] Varicella (varivax)(chicken pox) 1998-09-13 00:00:00 Completed [facility] 1998-09-13 00:00:00 Completed [facility] Varicella (varivax)(chicken pox) 1998-09-13 00:00:00 Completed [facility] 1998-09-13 00:00:00 Completed [facility] Varicella (varivax)(chicken pox) 1998-09-13 00:00:00 Completed [facility] 1998-09-13 00:00:00 Completed [facility] Varicella (varivax)(chicken pox) 1998-09-13 00:00:00 Completed [facility] 1998-09-13 00:00:00 Completed [facility] Varicella (varivax)(chicken pox) 1998-09-13 00:00:00 Completed [facility] 1998-09-13 00:00:00 [facility] Varicella (varivax)(chicken pox) 1998-09-13 00:00:00 Completed [facility] 1998-09-13 00:00:00 Completed [facility] Varicella (varivax)(chicken pox) 1998-09-13 00:00:00 Completed [facility] 1998-09-13 00:00:00 Completed [facility] Varicella (varivax)(chicken pox) 1998-09-13 00:00:00 Completed [facility] MMR 1998-09-13 00:00:00 Completed [facility] Varicella (varivax)(chicken pox) 1998-09-13 00:00:00 Completed [facility] MMR 1998-09-13 00:00:00 Completed [facility] IPV 1998-03-02 00:00:00 Completed [facility] Hib-HbOC 1998-03-02 00:00:00 Completed [facility] DTP 1998-03-02 00:00:00 Completed [facility] IPV 1998-03-02 00:00:00 Completed [facility] Hib-HbOC 1998-03-02 00:00:00 Completed [facility] DTP 1998-03-02 00:00:00 Completed [facility] IPV 1998-03-02 00:00:00 Completed [facility] Hib-HbOC 1998-03-02 00:00:00 Completed [facility] DTP 1998-03-02 00:00:00 Completed [facility] IPV 1998-03-02 00:00:00 Completed [facility] Hib-HbOC 1998-03-02 00:00:00 Completed [facility] DTP 1998-03-02 00:00:00 Completed [facility] IPV 1998-03-02 00:00:00 Completed [facility] Hib-HbOC 1998-03-02 00:00:00 Completed [facility] DTP 1998-03-02 00:00:00 Completed [facility] IPV 1998-03-02 00:00:00 Completed [facility] Hib-HbOC 1998-03-02 00:00:00 Completed [facility] DTP 1998-03-02 00:00:00 Completed [facility] IPV 1998-03-02 00:00:00 Completed [facility] Hib-HbOC 1998-03-02 00:00:00 Completed [facility] DTP 1998-03-02 00:00:00 Completed [facility] IPV 1998-03-02 00:00:00 Completed [facility] Hib-HbOC 1998-03-02 00:00:00 Completed [facility] DTP 1998-03-02 00:00:00 Completed [facility] IPV 1998-03-02 00:00:00 Completed [facility] Hib-HbOC 1998-03-02 00:00:00 Completed [facility] DTP 1998-03-02 00:00:00 Completed [facility] IPV 1998-03-02 00:00:00 Completed [facility] Hib-HbOC 1998-03-02 00:00:00 Completed [facility] DTP 1998-03-02 00:00:00 Completed [facility] IPV 1998-03-02 00:00:00 Completed [facility] Hib-HbOC 1998-03-02 00:00:00 Completed [facility] DTP 1998-03-02 00:00:00 Completed [facility] IPV 1998-03-02 00:00:00 Completed [facility] Hib-HbOC 1998-03-02 00:00:00 Completed [facility] DTP 1998-03-02 00:00:00 Completed [facility] IPV 1998-03-02 00:00:00 Completed [facility] Hib-HbOC 1998-03-02 00:00:00 Completed [facility] DTP 1998-03-02 00:00:00 Completed [facility] IPV 1998-03-02 00:00:00 Completed [facility] Hib-HbOC 1998-03-02 00:00:00 Completed [facility] DTP 1998-03-02 00:00:00 Completed [facility] IPV 1998-03-02 00:00:00 Completed [facility] Hib-HbOC 1998-03-02 00:00:00 Completed [facility] DTP 1998-03-02 00:00:00 Completed [facility] IPV 1998-03-02 00:00:00 Completed [facility] Hib-HbOC 1998-03-02 00:00:00 Completed [facility] DTP 1998-03-02 00:00:00 Completed [facility] IPV 1998-03-02 00:00:00 Completed [facility] Hib-HbOC 1998-03-02 00:00:00 Completed [facility] DTP 1998-03-02 00:00:00 Completed [facility] IPV 1998-03-02 00:00:00 Completed [facility] Hib-HbOC 1998-03-02 00:00:00 Completed [facility] DTP 1998-03-02 00:00:00 Completed [facility] IPV 1998-03-02 00:00:00 Completed [facility] Hib-HbOC 1998-03-02 00:00:00 Completed [facility] DTP 1998-03-02 00:00:00 Completed [facility] IPV 1998-03-02 00:00:00 Completed [facility] Hib-HbOC 1998-03-02 00:00:00 Completed [facility] DTP 1998-03-02 00:00:00 Completed [facility] IPV 1998-03-02 00:00:00 Completed [facility] Hib-HbOC 1998-03-02 00:00:00 Completed [facility] DTP 1998-03-02 00:00:00 Completed [facility] IPV 1998-03-02 00:00:00 Completed [facility] Hib-HbOC 1998-03-02 00:00:00 Completed [facility] DTP 1998-03-02 00:00:00 Completed [facility] IPV 1998-03-02 00:00:00 Completed [facility] Hib-HbOC 1998-03-02 00:00:00 Completed [facility] DTP 1998-03-02 00:00:00 Completed [facility] IPV 1998-03-02 00:00:00 Completed [facility] Hib-HbOC 1998-03-02 00:00:00 Completed [facility] DTP 1998-03-02 00:00:00 Completed [facility] IPV 1998-03-02 00:00:00 Completed [facility] Hib-HbOC 1998-03-02 00:00:00 Completed [facility] DTP 1998-03-02 00:00:00 Completed [facility] IPV 1998-01-17 00:00:00 Completed [facility] Hib-HbOC 1998-01-17 00:00:00 Completed [facility] DTP 1998-01-17 00:00:00 Completed [facility] IPV 1998-01-17 00:00:00 Completed [facility] Hib-HbOC 1998-01-17 00:00:00 Completed [facility] DTP 1998-01-17 00:00:00 Completed [facility] IPV 1998-01-17 00:00:00 Completed [facility] Hib-HbOC 1998-01-17 00:00:00 Completed [facility] DTP 1998-01-17 00:00:00 Completed [facility] IPV 1998-01-17 00:00:00 Completed [facility] Hib-HbOC 1998-01-17 00:00:00 Completed [facility] DTP 1998-01-17 00:00:00 Completed [facility] IPV 1998-01-17 00:00:00 Completed [facility] Hib-HbOC 1998-01-17 00:00:00 Completed [facility] DTP 1998-01-17 00:00:00 Completed [facility] IPV 1998-01-17 00:00:00 Completed [facility] Hib-HbOC 1998-01-17 00:00:00 Completed [facility] DTP 1998-01-17 00:00:00 Completed [facility] IPV 1998-01-17 00:00:00 Completed [facility] Hib-HbOC 1998-01-17 00:00:00 Completed [facility] DTP 1998-01-17 00:00:00 Completed [facility] IPV 1998-01-17 00:00:00 Completed [facility] Hib-HbOC 1998-01-17 00:00:[address] [facility] DTP 1998-01-17 00:00:00 Completed [facility] IPV 1998-01-17 00:00:00 Completed [facility] Hib-HbOC 1998-01-17 00:00:[address] [facility] DTP 1998-01-17 00:00:[address] [facility] IPV 1998-01-17 00:00:00 Completed [facility] Hib-HbOC 1998-01-17 00:00:00 Completed [facility] DTP 1998-01-17 00:00:00 Completed [facility] IPV 1998-01-17 00:00:00 Completed [facility] Hib-HbOC 1998-01-17 00:00:00 Completed [facility] DTP 1998-01-17 00:00:00 Completed [facility] IPV 1998-01-17 00:00:00 Completed [facility] Hib-HbOC 1998-01-17 00:00:00 Completed [facility] DTP 1998-01-17 00:00:00 Completed [facility] IPV 1998-01-17 00:00:00 Completed [facility] Hib-HbOC 1998-01-17 00:00:00 Completed [facility] DTP 1998-01-17 00:00:00 Completed [facility] IPV 1998-01-17 00:00:00 Completed [facility] Hib-HbOC 1998-01-17 00:00:00 Completed [facility] DTP 1998-01-17 00:00:00 Completed [facility] IPV 1998-01-17 00:00:00 Completed [facility] Hib-HbOC 1998-01-17 00:00:00 Completed [facility] DTP 1998-01-17 00:00:00 Completed [facility] IPV 1998-01-17 00:00:00 Completed [facility] Hib-HbOC 1998-01-17 00:00:00 Completed [facility] DTP 1998-01-17 00:00:00 Completed [facility] IPV 1998-01-17 00:00:00 Completed [facility] Hib-HbOC 1998-01-17 00:00:00 Completed [facility] DTP 1998-01-17 00:00:00 Completed [facility] IPV 1998-01-17 00:00:00 Completed [facility] Hib-HbOC 1998-01-17 00:00:00 Completed [facility] DTP 1998-01-17 00:00:00 Completed [facility] IPV 1998-01-17 00:00:00 Completed [facility] Hib-HbOC 1998-01-17 00:00:00 Completed [facility] DTP 1998-01-17 00:00:00 Completed [facility] IPV 1998-01-17 00:00:00 Completed [facility] Hib-HbOC 1998-01-17 00:00:00 Completed [facility] DTP 1998-01-17 00:00:00 Completed [facility] IPV 1998-01-17 00:00:00 Completed [facility] Hib-HbOC 1998-01-17 00:00:00 Completed [facility] DTP 1998-01-17 00:00:00 Completed [facility] IPV 1998-01-17 00:00:00 Completed [facility] Hib-HbOC 1998-01-17 00:00:00 Completed [facility] DTP 1998-01-17 00:00:00 Completed [facility] IPV 1998-01-17 00:00:00 Completed [facility] Hib-HbOC 1998-01-17 00:00:00 Completed [facility] DTP 1998-01-17 00:00:00 Completed [facility] IPV 1998-01-17 00:00:00 Completed [facility] Hib-HbOC 1998-01-17 00:00:00 Completed [facility] DTP 1998-01-17 00:00:00 Completed [facility] IPV 1998-01-17 00:00:00 Completed [facility] Hib-HbOC 1998-01-17 00:00:00 Completed [facility] DTP 1998-01-17 00:00:00 Completed [facility] IPV 1997 00:00:00 Completed [facility] Hib-HbOC 1997 00:00:00 Completed [facility] Hep B, Adol or Pedi Dosage 1997 00:00:00 Completed [facility] DTP 1997 00:00:00 Completed [facility] IPV 1997 00:00:00 Completed [facility] Hib-HbOC 1997 00:00:00 Completed [facility] Hep B, Adol or Pedi Dosage 1997 00:00:00 Completed [facility] DTP 1997 00:00:00 Completed [facility] IPV 1997 00:00:00 Completed [facility] Hib-HbOC 1997 00:00:00 Completed [facility] Hep B, Adol or Pedi Dosage 1997 00:00:00 Completed [facility] DTP 1997 00:00:00 Completed [facility] IPV 1997 00:00:00 Completed [facility] Hib-HbOC 1997 00:00:00 Completed [facility] Hep B, Adol or Pedi Dosage 1997 00:00:00 Completed [facility] DTP 1997 00:00:00 Completed [facility] IPV 1997 00:00:00 Completed [facility] Hib-HbOC 1997 00:00:00 Completed [facility] Hep B, Adol or Pedi Dosage 1997 00:00:00 Completed [facility] DTP 1997 00:00:00 Completed [facility] IPV 1997 00:00:00 Completed [facility] Hib-HbOC 1997 00:00:00 Completed [facility] Hep B, Adol or Pedi Dosage 1997 00:00:00 Completed [facility] DTP 1997 00:00:00 Completed [facility] IPV 1997 00:00:00 Completed [facility] Hib-HbOC 1997 00:00:00 Completed [facility] Hep B, Adol or Pedi Dosage 1997 00:00:00 Completed [facility] DTP 1997 00:00:00 Completed [facility] IPV 1997 00:00:00 Completed [facility] Hib-HbOC 1997 00:00:00 Completed [facility] Hep B, Adol or Pedi Dosage 1997 00:00:00 Completed [facility] DTP 1997 00:00:00 Completed [facility] IPV 1997 00:00:00 Completed [facility] Hib-HbOC 1997 00:00:00 Completed [facility] Hep B, Adol or Pedi Dosage 1997 00:00:00 Completed [facility] DTP 1997 00:00:00 Completed [facility] IPV 1997 00:00:00 Completed [facility] Hib-HbOC 1997 00:00:00 Completed [facility] Hep B, Adol or Pedi Dosage 1997 00:00:00 Completed [facility] DTP 1997 00:00:00 Completed [facility] IPV 1997 00:00:00 Completed [facility] Hib-HbOC 1997 00:00:00 Completed [facility] Hep B, Adol or Pedi Dosage 1997 00:00:00 Completed [facility] DTP 1997 00:00:00 Completed [facility] IPV 1997 00:00:00 Completed [facility] Hib-HbOC 1997 00:00:00 Completed [facility] Hep B, Adol or Pedi Dosage 1997 00:00:00 Completed [facility] DTP 1997 00:00:00 Completed [facility] IPV 1997 00:00:00 Completed [facility] Hib-HbOC 1997 00:00:00 Completed [facility] Hep B, Adol or Pedi Dosage 1997 00:00:00 Completed [facility] DTP 1997 00:00:00 Completed [facility] IPV 1997 00:00:00 Completed [facility] Hib-HbOC 1997 00:00:00 Completed [facility] Hep B, Adol or Pedi Dosage 1997 00:00:00 Completed [facility] DTP 1997 00:00:00 Completed [facility] IPV 1997 00:00:00 Completed [facility] Hib-HbOC 1997 00:00:00 Completed [facility] Hep B, Adol or Pedi Dosage 1997 00:00:00 Completed [facility] DTP 1997 00:00:00 Completed [facility] IPV 1997 00:00:00 Completed [facility] Hib-HbOC 1997 00:00:00 Completed [facility] Hep B, Adol or Pedi Dosage 1997 00:00:00 Completed [facility] DTP 1997 00:00:00 Completed [facility] IPV 1997 00:00:00 Completed [facility] Hib-HbOC 1997 00:00:00 Completed [facility] Hep B, Adol or Pedi Dosage 1997 00:00:00 Completed [facility] DTP 1997 00:00:00 Completed [facility] IPV 1997 00:00:00 Completed [facility] Hib-HbOC 1997 00:00:00 Completed [facility] Hep B, Adol or Pedi Dosage 1997 00:00:00 Completed [facility] DTP 1997 00:00:00 Completed [facility] IPV 1997 00:00:00 Completed [facility] Hib-HbOC 1997 00:00:00 Completed [facility] Hep B, Adol or Pedi Dosage 1997 00:00:00 Completed [facility] DTP 1997 00:00:00 Completed [facility] IPV 1997 00:00:00 Completed [facility] Hib-HbOC 1997 00:00:00 Completed [facility] Hep B, Adol or Pedi Dosage 1997 00:00:00 Completed [facility] DTP 1997 00:00:00 Completed [facility] IPV 1997 00:00:00 Completed [facility] Hib-HbOC 1997 00:00:00 Completed [facility] Hep B, Adol or Pedi Dosage 1997 00:00:00 Completed [facility] DTP 1997 00:00:00 Completed [facility] IPV 1997 00:00:00 Completed [facility] Hib-HbOC 1997 00:00:00 Completed [facility] Hep B, Adol or Pedi Dosage 1997 00:00:00 Completed [facility] DTP 1997 00:00:00 Completed [facility] IPV 1997 00:00:00 Completed [facility] Hib-HbOC 1997 00:00:00 Completed [facility] Hep B, Adol or Pedi Dosage 1997 00:00:00 Completed [facility] DTP 1997 00:00:00 Completed [facility] IPV 1997 00:00:00 Completed [facility] Hib-HbOC 1997 00:00:00 Completed [facility] Hep B, Adol or Pedi Dosage 1997 00:00:00 Completed [facility] DTP 1997 00:00:00 Completed [facility] IPV 1997 00:00:00 Completed [facility] Hib-HbOC 1997 00:00:00 Completed [facility] Hep B, Adol or Pedi Dosage 1997 00:00:00 Completed [facility] DTP 1997 00:00:00 Completed [facility] Hep B, Adol or Pedi Dosage 1997 00:00:00 Completed [facility] Hep B, Adol or Pedi Dosage 1997 00:00:00 Completed [facility] Hep B, Adol or Pedi Dosage 1997 00:00:00 Completed [facility] Hep B, Adol or Pedi Dosage 1997 00:00:00 Completed [facility] Hep B, Adol or Pedi Dosage 1997 00:00:00 Completed [facility] Hep B, Adol or Pedi Dosage 1997 00:00:00 Completed [facility] Hep B, Adol or Pedi Dosage 1997 00:00:00 Completed [facility] Hep B, Adol or Pedi Dosage 1997 00:00:00 Completed [facility] Hep B, Adol or Pedi Dosage 1997 00:00:00 Completed [facility] Hep B, Adol or Pedi Dosage 1997 00:00:00 Completed [facility] Hep B, Adol or Pedi Dosage 1997 00:00:00 Completed [facility] Hep B, Adol or Pedi Dosage 1997 00:00:00 Completed [facility] Hep B, Adol or Pedi Dosage 1997 00:00:00 Completed [facility] Hep B, Adol or Pedi Dosage 1997 00:00:00 Completed [facility] Hep B, Adol or Pedi Dosage 1997 00:00:00 Completed [facility] Hep B, Adol or Pedi Dosage 1997 00:00:00 Completed [facility] Hep B, Adol or Pedi Dosage 1997 00:00:00 Completed [facility] Hep B, Adol or Pedi Dosage 1997 00:00:00 Completed [facility] Hep B, Adol or Pedi Dosage 1997 00:00:00 Completed [facility] Hep B, Adol or Pedi Dosage 1997 00:00:00 Completed [facility] Hep B, Adol or Pedi Dosage 1997 00:00:00 Completed [facility] Hep B, Adol or Pedi Dosage 1997 00:00:00 Completed [facility] Hep B, Adol or Pedi Dosage 1997 00:00:00 Completed [facility] Hep B, Adol or Pedi Dosage 1997 00:00:00 Completed [facility] Hep B, Adol or Pedi Dosage 1997 00:00:00 Completed [facility] Influenza Virus Vaccine Quad .5 mL IM 6+ MO (FLUZONE/FLULAVAL/FL UARIX) Unknown Completed [facility] Varicella (varivax)(chicken pox) Unknown Completed [facility] Varicella (varivax)(chicken pox) Unknown Completed [facility] IPV Unknown Completed [facility] IPV Unknown Completed [facility] IPV Unknown Completed [facility] IPV Unknown Completed [facility] TDAP Unknown Completed [facility] MMR Unknown Completed [facility] MMR Unknown Completed [facility] Meningococcal Polysaccharide (groups A, C, Y and W-135) conjugate vaccine (MCV4P) Unknown Completed [facility] HPV Unknown Completed [facility] HPV Unknown Completed [facility] Hib-HbOC Unknown Completed [facility] Hib-HbOC Unknown Completed [facility] Hib-HbOC Unknown Completed [facility] Hib-HbOC Unknown Completed [facility] Hep B, Adol or Pedi Dosage Unknown Completed [facility] Hep B, Adol or Pedi Dosage Unknown Completed [facility] Hep B, Adol or Pedi Dosage Unknown Completed [facility] HEPATITIS A Unknown Completed [facility] DTP Unknown Completed [facility] DTP Unknown Completed [facility] DTP Unknown Completed [facility] DTP Unknown Completed [facility] DTaP, Unspecified Formulation Unknown Completed [facility] Influenza Virus Vaccine Quad .5 mL IM 6+ MO (FLUZONE/FLULAVAL/FL UARIX) Unknown Completed [facility] Varicella (varivax)(chicken pox) Unknown Completed [facility] Varicella (varivax)(chicken pox) Unknown Completed [facility] IPV Unknown Completed [facility] IPV Unknown Completed [facility] IPV Unknown Completed [facility] IPV Unknown Completed [facility] TDAP Unknown Completed [facility] MMR Unknown Completed [facility] MMR Unknown Completed [facility] Meningococcal Polysaccharide (groups A, C, Y and W-135) conjugate vaccine (MCV4P) Unknown Completed [facility] HPV Unknown Completed [facility] HPV Unknown Completed [facility] Hib-HbOC Unknown Completed [facility] Hib-HbOC Unknown Completed [facility] Hib-HbOC Unknown Completed [facility] Hib-HbOC Unknown Completed [facility] Hep B, Adol or Pedi Dosage Unknown Completed [facility] Hep B, Adol or Pedi Dosage Unknown Completed [facility] Hep B, Adol or Pedi Dosage Unknown Completed [facility] HEPATITIS A Unknown Completed [facility] DTP Unknown Completed [facility] DTP Unknown Completed [facility] DTP Unknown Completed [facility] DTP Unknown Completed [facility] DTaP, Unspecified Formulation Unknown Completed [facility] TDAP Unknown Completed [facility] Influenza Virus Vaccine Quad .5 mL IM 6+ MO (FLUZONE/FLULAVAL/FL UARIX) Unknown Completed [facility] Varicella (varivax)(chicken pox) Unknown Completed [facility] Varicella (varivax)(chicken pox) Unknown Completed [facility] IPV Unknown Completed [facility] IPV Unknown Completed [facility] IPV Unknown Completed [facility] IPV Unknown Completed [facility] TDAP Unknown Completed [facility] MMR Unknown Completed [facility] MMR Unknown Completed [facility] Meningococcal Polysaccharide (groups A, C, Y and W-135) conjugate vaccine (MCV4P) Unknown Completed [facility] HPV Unknown Completed [facility] HPV Unknown Completed [facility] Hib-HbOC Unknown Completed [facility] Hib-HbOC Unknown Completed [facility] Hib-HbOC Unknown Completed [facility] Hib-HbOC Unknown Completed [facility] Hep B, Adol or Pedi Dosage Unknown Completed [facility] Hep B, Adol or Pedi Dosage Unknown Completed [facility] Hep B, Adol or Pedi Dosage Unknown Completed [facility] HEPATITIS A Unknown Completed [facility] DTP Unknown Completed [facility] DTP Unknown Completed [facility] DTP Unknown Completed [facility] DTP Unknown Completed [facility] DTaP, Unspecified Formulation Unknown Completed [facility] TDAP Unknown Completed [facility] Influenza Virus Vaccine Quad .5 mL IM 6+ MO (FLUZONE/FLULAVAL/FL UARIX) Unknown Completed [facility] Varicella (varivax)(chicken pox) Unknown Completed [facility] Varicella (varivax)(chicken pox) Unknown Completed [facility] IPV Unknown Completed [facility] IPV Unknown Completed [facility] IPV Unknown Completed [facility] IPV Unknown Completed [facility] TDAP Unknown Completed [facility] MMR Unknown Completed [facility] MMR Unknown Completed [facility] Meningococcal Polysaccharide (groups A, C, Y and W-135) conjugate vaccine (MCV4P) Unknown Completed [facility] HPV Unknown Completed [facility] HPV Unknown Completed [facility] Hib-HbOC Unknown Completed [facility] Hib-HbOC Unknown Completed [facility] Hib-HbOC Unknown Completed [facility] Hib-HbOC Unknown Completed [facility] Hep B, Adol or Pedi Dosage Unknown Completed [facility] Hep B, Adol or Pedi Dosage Unknown Completed [facility] Hep B, Adol or Pedi Dosage Unknown Completed [facility] HEPATITIS A Unknown Completed [facility] DTP Unknown Completed [facility] DTP Unknown Completed [facility] DTP Unknown Completed [facility] DTP Unknown Completed [facility] DTaP, Unspecified Formulation Unknown Completed [facility] TDAP Unknown Completed [facility] Influenza Virus Vaccine Quad .5 mL IM 6+ MO (FLUZONE/FLULAVAL/FL UARIX) Unknown Completed [facility] Varicella (varivax)(chicken pox) Unknown Completed [facility] Varicella (varivax)(chicken pox) Unknown Completed [facility] IPV Unknown Completed [facility] IPV Unknown Completed [facility] IPV Unknown Completed [facility] IPV Unknown Completed [facility] TDAP Unknown Completed [facility] MMR Unknown Completed [facility] MMR Unknown Completed [facility] Meningococcal Polysaccharide (groups A, C, Y and W-135) conjugate vaccine (MCV4P) Unknown Completed [facility] HPV Unknown Completed [facility] HPV Unknown Completed [facility] Hib-HbOC Unknown Completed [facility] Hib-HbOC Unknown Completed [facility] Hib-HbOC Unknown Completed [facility] Hib-HbOC Unknown Completed [facility] Hep B, Adol or Pedi Dosage Unknown Completed [facility] Hep B, Adol or Pedi Dosage Unknown Completed [facility] Hep B, Adol or Pedi Dosage Unknown Completed [facility] HEPATITIS A Unknown Completed [facility] DTP Unknown Completed [facility] DTP Unknown Completed [facility] DTP Unknown Completed [facility] DTP Unknown Completed [facility] DTaP, Unspecified Formulation Unknown Completed [facility] TDAP Unknown Completed [facility] Influenza Virus Vaccine Quad .5 mL IM 6+ MO (FLUZONE/FLULAVAL/FL UARIX) Unknown Completed [facility] Varicella (varivax)(chicken pox) Unknown Completed [facility] Varicella (varivax)(chicken pox) Unknown Completed [facility] IPV Unknown Completed [facility] IPV Unknown Completed [facility] IPV Unknown Completed [facility] IPV Unknown Completed [facility] TDAP Unknown Completed [facility] MMR Unknown Completed [facility] MMR Unknown Completed [facility] Meningococcal Polysaccharide (groups A, C, Y and W-135) conjugate vaccine (MCV4P) Unknown Completed [facility] HPV Unknown Completed [facility] HPV Unknown Completed [facility] Hib-HbOC Unknown Completed [facility] Hib-HbOC Unknown Completed [facility] Hib-HbOC Unknown Completed [facility] Hib-HbOC Unknown Completed [facility] Hep B, Adol or Pedi Dosage Unknown Completed [facility] Hep B, Adol or Pedi Dosage Unknown Completed [facility] Hep B, Adol or Pedi Dosage Unknown Completed [facility] HEPATITIS A Unknown Completed [facility] DTP Unknown Completed [facility] DTP Unknown Completed [facility] DTP Unknown Completed [facility] DTP Unknown Completed [facility] DTaP, Unspecified Formulation Unknown Completed [facility] TDAP Unknown Completed [facility] Vital Signs Vital Name Observation Time Observation Value Comments S ource Systolic blood pressure 2023-05-23 14:18:00 101 mm[Hg] [facility] Diastolic blood pressure 2023-05-23 14:18:00 62 mm[Hg] [facility] Heart rate 2023-05-23 14:18:00 90 /min [facility] Body temperature 2023-05-23 14:18:00 36.72 Amanda [facility] Body height 2023-05-23 14:18:00 162.6 cm [facility] Body weight 2023-05-23 14:18:00 70.308 kg [facility] BMI 2023-05-23 14:18:00 26.61 kg/m2 [facility] Oxygen saturation in Arterial blood by Pulse oximetry 2023-05-23 14:18:00 100 /min [facility] Systolic blood pressure 2022-04-18 17:01:00 111 mm[Hg] [facility] Diastolic blood pressure 2022-04-18 17:01:00 76 mm[Hg] [facility] Heart rate 2022-04-18 17:01:00 88 /min [facility] Respiratory rate 2022-04-18 17:01:00 18 /min [facility] Body height 2022-04-18 17:01:00 162.6 cm [facility] Body weight 2022-04-18 17:01:00 78.926 kg [facility] BMI 2022-04-18 17:01:00 29.87 kg/m2 [facility] Systolic blood pressure 2022-04-11 17:00:00 112 mm[Hg] [facility] Diastolic blood pressure 2022-04-11 17:00:00 67 mm[Hg] [facility] Heart rate 2022-04-11 17:00:00 92 /min [facility] Body temperature 2022-04-11 17:00:00 36.83 Amanda [facility] Respiratory rate 2022-04-11 17:00:00 16 /min [facility] Oxygen saturation in Arterial blood by Pulse oximetry 2022-04-11 17:00:00 100 /min [facility] Body height 2022-04-09 10:15:00 162.6 cm [facility] Body weight 2022-04-09 10:15:00 83.915 kg [facility] BMI 2022-04-09 10:15:00 31.76 kg/m2 [facility] Respiratory rate 2022-04-10 02:40:00 27 /min [facility] Systolic blood pressure 2022-04-10 05:00:00 116 mm[Hg] [facility] Diastolic blood pressure 2022-04-10 05:00:00 70 mm[Hg] [facility] Heart rate 2022-04-10 05:00:00 91 /min [facility] Body temperature 2022-04-10 05:00:00 36.61 Amanda [facility] Respiratory rate 2022-04-10 05:00:00 14 /min [facility] Oxygen saturation in Arterial blood by Pulse oximetry 2022-04-10 05:00:00 99 /min [facility] Body height 2022-04-09 10:15:00 162.6 cm [facility] Body weight 2022-04-09 10:15:00 83.915 kg [facility] BMI 2022-04-09 10:15:00 31.76 kg/m2 [facility] Systolic blood pressure 2022-04-06 20:51:00 128 mm[Hg] [facility] Diastolic blood pressure 2022-04-06 20:51:00 79 mm[Hg] [facility] Heart rate 2022-04-06 20:51:00 111 /min [facility] Body temperature 2022-04-06 20:51:00 36.83 Amanda [facility] Body height 2022-04-06 20:51:00 162.6 cm [facility] Body weight 2022-04-06 20:51:00 84.913 kg [facility] BMI 2022-04-06 20:51:00 32.13 kg/m2 [facility] Systolic blood pressure 2022-03-30 19:09:00 118 mm[Hg] [facility] Diastolic blood pressure 2022-03-30 19:09:00 74 mm[Hg] [facility] Heart rate 2022-03-30 19:09:00 98 /min [facility] Body temperature 2022-03-30 19:09:00 36.61 Amanda [facility] Respiratory rate 2022-03-30 19:09:00 16 /min [facility] Body height 2022-03-30 19:09:00 162.6 cm [facility] Body weight 2022-03-30 19:09:00 85.548 kg [facility] BMI 2022-03-30 19:09:00 32.37 kg/m2 [facility] Oxygen saturation in Arterial blood by Pulse oximetry 2022-03-30 19:09:00 97 /min [facility] Systolic blood pressure 2022-03-23 17:51:00 124 mm[Hg] [facility] Diastolic blood pressure 2022-03-23 17:51:00 74 mm[Hg] [facility] Heart rate 2022-03-23 17:51:00 86 /min [facility] Body temperature 2022-03-23 17:51:00 36.78 Amanda [facility] Body height 2022-03-23 17:51:00 162.6 cm [facility] Body weight 2022-03-23 17:51:00 82.101 kg [facility] BMI 2022-03-23 17:51:00 31.07 kg/m2 [facility] Systolic blood pressure 2022-03-05 15:59:00 113 mm[Hg] [facility] Diastolic blood pressure 2022-03-05 15:59:00 69 mm[Hg] [facility] Heart rate 2022-03-05 15:59:00 88 /min [facility] Body temperature 2022-03-05 15:59:00 36.78 Amanda [facility] Respiratory rate 2022-03-05 15:59:00 18 /min [facility] Body height 2022-03-05 15:59:00 162.6 cm [facility] Body weight 2022-03-05 15:59:00 81.647 kg [facility] BMI 2022-03-05 15:59:00 30.90 kg/m2 [facility] Systolic blood pressure 2022-02-15 15:39:00 127 mm[Hg] [facility] Diastolic blood pressure 2022-02-15 15:39:00 69 mm[Hg] [facility] Heart rate 2022-02-15 15:39:00 85 /min [facility] Body temperature 2022-02-15 15:39:00 36.83 Amanda [facility] Respiratory rate 2022-02-15 15:39:00 16 /min [facility] Body height 2022-02-15 15:39:00 162.6 cm [facility] Body weight 2022-02-15 15:39:00 80.06 kg [facility] BMI 2022-02-15 15:39:00 30.30 kg/m2 [facility] Oxygen saturation in Arterial blood by Pulse oximetry 2022-02-15 15:39:00 100 /min [facility] Systolic blood pressure 2022-02-01 22:02:00 126 mm[Hg] [facility] Diastolic blood pressure 2022-02-01 22:02:00 77 mm[Hg] [facility] Heart rate 2022-02-01 22:02:00 83 /min [facility] Body temperature 2022-02-01 22:02:00 36.39 Amanda [facility] Respiratory rate 2022-02-01 22:02:00 18 /min [facility] Body height 2022-02-01 22:02:00 162.6 cm [facility] Body weight 2022-02-01 22:02:00 74.844 kg [facility] BMI 2022-02-01 22:02:00 28.32 kg/m2 [facility] Systolic blood pressure 2021-08-29 20:02:00 103 mm[Hg] [facility] Diastolic blood pressure 2021-08-29 20:02:00 59 mm[Hg] [facility] Heart rate 2021-08-29 20:02:00 79 /min [facility] Body temperature 2021-08-29 20:02:00 36.94 Amanda [facility] Respiratory rate 2021-08-29 20:02:00 18 /min [facility] Body height 2021-08-29 20:02:00 162.6 cm [facility] Body weight 2021-08-29 20:02:00 64.864 kg [facility] BMI 2021-08-29 20:02:00 24.55 kg/m2 [facility] Systolic blood pressure 2021-06-23 21:09:00 113 mm[Hg] [facility] Diastolic blood pressure 2021-06-23 21:09:00 76 mm[Hg] [facility] Heart rate 2021-06-23 21:09:00 84 /min [facility] Body height 2021-06-23 21:09:00 162.6 cm [facility] Body weight 2021-06-23 21:09:00 69.083 kg [facility] BMI 2021-06-23 21:09:00 26.14 kg/m2 [facility] Oxygen saturation in Arterial blood by Pulse oximetry 2021-06-23 21:09:00 98 /min [facility] Procedures Procedure Date / Time Performed Performing Clinician Source ASSIGNMENT OF BENEFITS 2023-05-23 13:58:55 Docto r Unassigned, [place] [facility] PATIENT FINANCIAL POLICY 2022-05-04 15:10:51 Doctor Unassigned, [place] [facility] CBC WITH DIFF 2022-04-10 10:28:00 Lebron Douglas [facility] CBC WITH DIFF 2022-04-10 10:28:00 Lebron Douglas [facility] CENTRAL NEURAXIAL BLOCK 2022-04-09 16:26:00 Mallika Boggs [facility] CBC WITH DIFF 2022-04-09 11:10:00 Lebron Douglas [facility] HEPATITIS B SURFACE ANTIGEN 2022-04-09 11:10:00 Lebron Douglas [facility] HB ABO GROUPING 2022-04-09 11:10:00 Lebron Douglas [facility] RHO (D) IMMUNE GLOBULIN 2022-04-09 11:10[facility] - RPR 2022-04-09 11:10:00 [facility] HIV 1/2 AG-AB WITH REFLEX 2022-04-09 11:10:00 [facility] WITH DIFF 2022-04-09 11:10:00 [facility] B SURFACE ANTIGEN 2022-04-09 11:10:00 Misael [facility] HB ABO GROUPING 2022-04-09 11:10:00 Douglas [facility] RHO (D) IMMUNE GLOBULIN 2022-04-09 11:10:00 [facility] - RPR 2022-04-09 11:10:00 [facility] HIV 1/2 AG-AB WITH REFLEX 2022-04-09 11:10:00 Lebron Douglas [facility] HOSPITAL ADMISSION 2022-04-09 06:01:00 Doctor Un assigned, [place] [facility] CONSENT/REFUSAL FOR DIAGNOSIS AND TREATMENT 2022-04-07 18:54:27 Doctor Unassigned, [place] [facility] POCT URINALYSIS W/O SPECIFIC GRAVITY 2022-04-06 00:00:00 Lebron Douglas [facility] POCT URINALYSIS W/O SPECIFIC GRAVITY 2022-03-30 00:00:00 [facility] >14 WEEKS US LIMITED 2022-03-23 18:33:20 [facility] D[facility] PRE-OP 2022-03-23 06:01:00 Doctor Unass igned, [place] [facility] POCT URINALYSIS W/O SPECIFIC GRAVITY 2022-03-23 00:00:00 Lebron Douglas [facility] TDAP VACCINE, >11 YRS, IM 2022-03-05 16:19:36 Mar Marcial [facility] POCT URINALYSIS W/O SPECIFIC GRAVITY 2022-03-05 00:00:00 Mar Marcial [facility] POCT URINALYSIS W/O SPECIFIC GRAVITY 2022-02-15 00:00:00 Mar Marcial [facility] DME/SUPPLY JUSTIFICATION 2022-02-13 06:01:00 Doc tor Unassigned, [place] [facility] AUTHORIZATION FOR RELEASE OF PHI 2021-10-02 05:01:00 Doctor Unassigned, [place] [facility] AUTHORIZATION FOR RELEASE OF PHI 2021-09-15 05:01:00 Doctor Unassigned, [place] [facility] <14 WEEKS US LIMITED 2021-08-29 22:22:30 Justin Suhas [facility] URINE DRUG (IMMUNOASSAY) - COMPREHENSIVE DRUG SCREEN 2021-08-29 21:58:00 Justin [facility] GC & CHLAMYDIA AMPLIFIED ASSAY 2021-08-29 21:58:00 Justin Suhas [facility] TRICHOMONAS AMPLIFIED ASSAY 2021-08-29 21:58:00 Justin Suhas [facility] INSTRUCTIONAL INTERVENTIONIST CLINIC ULTRASOUND 2021-08-29 05:01:00 Doc tor Unassigned, [place] [facility] POCT TEST 2021-08-29 00:00:00 Suhas Anderson Pat [facility] POCT URINALYSIS W/O SPECIFIC GRAVITY 2021-08-29 00:00:00 Justin Suhas [facility] SECTION Lebron Douglas [facility] SECTION Lebron Douglas [facility] Encounters Start Date/Time End Date/Time Encounter Type Admission Type Attending [facility] Care Department Encounter ID Source 2020-12-30 10:49:51 Outpatient P [facility] [id number] [facility] 2020-12-30 08:51:44 Outpatient P [facility] [id number] [facility] 2023-06-01 00:00:00 2023-06-01 00:00:00 Patient Secure Msg Doctor Unassigned, [place] [facility] 1.2.840.114 350.1.13.10 4.2.7.2.686 [id number] [facility] 2023-05-23 09:45:00 2023-05-23 10:00:00 Mixer Foam Rubber Visit Lab, Fernie Johnsonkimberly [facility] 1.84.114 350.1.13.10 4.2.7.2.686 [id number] [facility] 2023-05-23 09:00:00 2023-05-23 09:33:41 Outpatient R [facility] [id number] [facility] 2023-05-23 09:00:00 2023-05-23 09:33:41 [facility] 1.84.114 350.1.13.10 4.2.7.2.686 [id number] [facility] 2023-05-23 00:00:00 2023-05-23 00:00:00 Orders Only Doctor Unassigned, [place] [facility] 1.114 350.1.13.10 4.2.7.2.686 [id number] [facility] 2022-05-04 09:30:00 2022-05-04 10:08:23 [facility] [id number] [facility] 2022-05-04 09:30:00 2022-05-04 10:08:23 Routine Visit Mar Marcial [facility] 1.114 350.1.13.10 4.2.7.2.686 [id number] [facility] 2022-05-04 00:00:00 2022-05-04 00:00:00 Orders Only Doctor Unassigned, [place] [facility] 1.2.840.114 350.1.13.10 4.2.7.2.686 [id number] [facility] 2022-04-18 10:45:00 2022-04-18 11:15:25 Outpatient R [address]ON [facility] [facility] [id number] [facility] 2022-04-18 10:45:00 2022-04-18 11:15:25 Routine Visit Mar Marcial Lebron Douglas Jasper [facility] 1.2.840.114 350.1.13.10 4.2.7.2.686 [id number] [facility] 2022-04-09 04:00:00 2022-04-11 14:30:00 Inpatient P LEBRON DOUGLAS [facility] [id number] [facility] 2022-04-09 04:00:00 2022-04-11 14:30:00 Hospital Encounter Lebron Douglas [facility] 1.2.840.114 350.1.13.10 4.2.7.2.686 [id number] [facility] 2022-04-10 20:03:31 2022-04-10 20:03:31 Anesthesia Event Francois Bogsg [facility] 1.2.840.114 350.1.13.10 4.2.7.2.686 [id number] [facility] 2022-04-09 10:08:00 2022-04-09 20:46:00 Anesthesia Event Francois Boggs Rachell Murphy [facility] 1.2.840.114 350.1.13.10 4.2.7.2.686 [id number] [facility] 2022-04-09 00:00:00 2022-04-09 00:00:00 Surgery Lebron Douglas [facility] 1.2.840.114 350.1.13.10 4.2.7.2.686 [id number] [facility] 2022-04-09 00:00:00 2022-04-09 00:00:00 Orders Only Doctor Unassigned, [place] [facility] 1.2.840.114 350.1.13.10 4.2.7.2.686 [id number] [facility] 2022-04-07 00:00:00 2022-04-07 00:00:00 Orders Only Doctor Unassigned, [place] [facility] 1.2.840.114 350.1.13.10 4.2.7.2.686 [id number] [facility] 2022-04-07 00:00:00 2022-04-07 00:00:00 Telephone [facility] 1.840.114 350.1.13.10 4.2.7.2.686 [id number] [facility] 2022-04-06 14:15:00 2022-04-06 15:07:05 Outpatient R [facility] [id number] [facility] 2022-04-06 14:15:00 2022-04-06 15:07:05 Routine Visit [facility] 1.2840.114 350.1.13.10 4.2.7.2.686 [id number] [facility] 2022-03-30 13:00:00 2022-03-30 13:37:00 Outpatient R [facility]BRON [facility] [id number] [facility] 2022-03-30 13:00:00 2022-03-30 13:37:00 Routine Visit [facility] 1.840.114 350.1.13.10 4.2.7.2.686 [id number] [facility] 2022-03-26 08:45:00 2022-03-26 09:00:00 Mixer Foam Rubber Visit Lab, Ang - Db Lebron Douglas [facility] 1..840.114 350.1.13.10 4.2.7.2.686 [id number] [facility] 2022-03-26 08:45:00 2022-03-26 08:45:00 Outpatient R MISAEL [facility] [id number] [facility] 2022-03-23 11:30:00 2022-03-23 12:13:10 Outpatient R MISAEL [facility] [id number] [facility] 2022-03-23 11:30:00 2022-03-23 12:13:10 Routine Visit Lebron Douglas [facility] 1.84.114 350.1.13.10 4.2.7.2.686 [id number] [facility] 2022-03-23 00:00:00 2022-03-23 00:00:00 Orders Only Doctor Unassigned, [place] [facility] 1.840.114 350.1.13.10 4.2.7.2.686 [id number] [facility] 2022-03-05 09:30:00 2022-03-05 10:19:30 Outpatient R MAR MARCIAL [facility]AL [facility] [id number] [facility] 2022-03-05 09:30:00 2022-03-05 10:19:30 Routine Visit Mar Marcial [facility] 1.840.114 350.1.13.10 4.2.7.2.686 [id number] [facility] 2022-02-15 09:30:00 2022-02-15 09:57:03 Routine [address] Mar Marcial [facility] 1.2.840.114 350.1.13.10 4.2.7.2.686 [id number] [facility] 2022-02-15 09:30:00 2022-02-15 09:57:03 [facility] [id number] [facility] 2022-02-15 00:00:00 2022-02-15 00:00:00 Patient Secure Msg Adan [facility] 1.2.840.114 350.1.13.10 4.2.7.2.686 [id number] [facility] 2022-02-14 09:45:00 2022-02-14 10:45:00 Mixer Foam Rubber Visit Ultrasound, Nuno Walker [facility] INSTRUCTIONAL INTERVENTIONIST [facility] 1.2.840.114 350.1.13.10 4.2.7.2.686 [id number] [facility] 2022-02-14 09:45:00 2022-02-14 09:45:00 Outpatient P NUNO MEANS [facility] [id number] [facility] 2022-02-14 00:00:00 2022-02-14 00:00:00 Case Management Mar Marcial [facility] 1.2.840.114 350.1.13.10 4.2.7.2.686 [id number] [facility] 2022-02-13 00:00:00 2022-02-13 00:00:00 Orders Only Doctor Unassigned, [place] [facility] 1.2.840.114 350.1.13.10 4.2.7.2.686 [id number] [facility] 2022-02-12 00:00:00 2022-02-12 00:00:00 [facility] 1.20.114 350.1.13.10 4.2.7.2.686 [id number] [facility] 2022-02-02 08:30:00 2022-02-02 08:45:00 Mixer Foam Rubber Visit Lab, Fernie Stevenson Adan [facility] 1..114 350.1.13.10 4.2.7.2.686 [id number] [facility] 2022-02-02 08:30:00 2022-02-02 08:30:00 Outpatient R BHAVIKMAR [facility] [id number] [facility] 2022-02-01 16:00:00 2022-02-01 16:26:03 Outpatient R BHAVIKMAR RAGSDALE BHAVIKJHONTEJALELIO [facility] [id number] [facility] 2022-02-01 16:00:00 2022-02-01 16:26:03 Routine Visit Adan [facility] 1.2.114 350.1.13.10 4.2.7.2.686 [id number] [facility] 2022-01-10 00:00:00 2022-01-10 00:00:00 Telephone Makenzie Barragan [facility] 1..114 350.1.13.10 4.2.7.2.686 [id number] [facility] 2021-10-02 00:00:00 2021-10-02 00:00:00 Orders Only Doctor Unassigned, [place] [facility] 1.20.114 350.1.13.10 4.2.7.2.686 [id number] [facility] 2021-09-26 10:30:00 2021-09-26 10:30:00 Outpatient R HETALELIO MAR HETALELIO [facility]ONATHANELIZA [facility] [id number] [facility] 2021-09-15 00:00:00 2021-09-15 00:00:00 Orders Only Doctor Unassigned, [place] [facility] 1.2840.114 350.1.13.10 4.2.7.2.686 [id number] [facility] 2021-09-06 00:00:00 2021-09-06 00:00:00 Case Management Suhas Anderson [facility] 1.840.114 350.1.13.10 4.2.7.2.686 [id number] [facility] 2021-08-29 14:30:00 2021-08-29 16:18:53 Outpatient R FRANCE [address] [facility] [id number] [facility] 2021-08-29 14:30:00 2021-08-29 16:18:53 Initial Visit France Andersonn [facility] 1.840.114 350.1.13.10 4.2.7.2.686 [id number] [facility] 2021-08-29 00:00:00 2021-08-29 00:00:00 Orders Only Doctor Unassigned, [place] [facility] 1.840.114 350.1.13.10 4.2.7.2.686 [id number] [facility] 2021-08-26 00:00:00 2021-08-26 00:00:00 Nurse Triage Eleanor Mchugh [facility] 1.840.114 350.1.13.10 4.2.7.2.686 [id number] [facility] 2021-07-28 00:00:00 2021-07-28 00:00:00 [facility] 1.840.114 350.1.13.10 4.2.7.2.686 [id number] [facility] 2021-06-23 16:00:00 2021-06-23 16:47:47 Outpatient R MAKENZIE BARRAGAN [facility] [id number] [facility] 2021-06-23 16:00:00 2021-06-23 16:47:47 [facility] 1.840.114 350.1.13.10 4.2.7.2.686 [id number] [facility] 2021-06-23 13:30:00 2021-06-23 13:30:00 Outpatient R MAKENZIE BARRAGAN [facility] [id number] [facility] 2021-05-23 14:00:00 2021-05-23 15:20:56 Outpatient R MAKENZIE BARR[address] [facility] [id number] [facility] 2021-05-23 14:00:00 2021-05-23 15:20:56 [facility] 1.840.114 350.1.13.10 4.2.7.2.686 [id number] [facility] 2021-05-22 20:20:00 2021-05-22 20:20:[address] [facility] [id number] [facility] 2021-05-22 00:00:00 2021-05-22 00:00:00 Telephone Nurse, Fernie [facility] 1.840.114 350.1.13.10 4.2.7.2.686 [id number] [facility] 2021-05-22 00:00:00 2021-05-22 00:00:00 Telephone Olivia Castro [facility] 1.2.840.114 350.1.13.10 4.2.7.2.686 [id number] [facility] 2021-04-12 10:30:00 2021-04-12 10:30:00 Outpatient R OLIVIA CASTRO [facility] [id number] [facility] 2021-03-08 11:15:00 2021-03-08 11:30:00 Mixer Foam Rubber Visit Lab, Fernie Stevenson Olivia Castro [facility] 1.2.840.114 350.1.13.10 4.2.7.2.686 [id number] [facility] 2021-03-08 10:00:00 2021-03-08 11:03:37 Outpatient R OLIVIA CASTRO [facility] [id number] [facility] 2021-03-08 10:00:00 2021-03-08 11:03:37 Office Visit Olivia Castro [facility] 1.2.840.114 350.1.13.10 4.2.7.2.686 [id number] [facility] 2020-07-04 13:00:00 2020-07-04 13:00:00 Outpatient R DELMI SIMMONS [facility] [id number] [facility] 2020-01-20 02:37:00 2020-01-20 02:37:00 Outpatient G[facility]appas [facility] [id number] [facility] 2020-01-15 00:00:00 2020-01-15 00:00:00 Telephone [facility]bron Douglas [facility] 1.2.840.114 350.1.13.10 4.2.7.2.686 [id number] 134 [id number] [facility] 2020-01-15 00:00:00 2020-01-15 00:00:00 Telephone Lebron Douglas [facility] 1.2.840.114 350.1.13.10 4.2.7.2.686 [id number] 134 [id number] 2020-01-04 11:16:09 2020-01-04 11:31:09 [facility] 1.2.840.114 350.1.13.10 4.2.7.2.686 [id number] 134 [id number] [facility] 2020-01-04 11:16:09 2020-01-04 11:31:09 Routine Visit Troy [facility] 1.2.840.114 350.1.13.10 4.2.7.2.686 [id number] 134 [id number] 2020-01-04 11:15:00 2020-01-04 11:15:00 Outpatient R TROY [facility] [id number] [facility] 2020-01-04 00:00:00 2020-01-04 00:00:00 Orders Only Doctor Unassigned, [place] [facility] 1.2.840.114 350.1.13.10 4.2.7.2.686 [id number] [id number] 2020-01-04 00:00:00 2020-01-04 00:00:00 Orders Only Doctor Unassigned, [place] [facility] 1.2.840.114 350.1.13.10 4.2.7.2.686 [id number] [id number] [facility] 2019-12-07 12:00:00 2019-12-10 11:50:00 Hospital Encounter Lebron Douglas [facility] 1.2.840.114 350.1.13.10 4.2.7.2.686 [id number] 2019-12-07 12:00:00 2019-12-10 11:50:00 Hospital Encounter Lebron Douglas [facility] 1.2.840.114 350.1.13.10 4.2.7.2.686 [id number] [facility] 2019-12-07 00:00:00 2019-12-07 00:00:00 Orders Only Doctor Unassigned, [place] [facility] 1.2.840.114 350.1.13.10 4.2.7.2.686 [id number] [id number] [facility] 2019-12-07 00:00:00 2019-12-07 00:00:00 Orders Only Doctor Unassigned, [place] [facility] 1.2.840.114 350.1.13.10 4.2.7.2.686 [id number] [id number] 2019-12-04 14:27:15 2019-12-04 14:42:15 Laboratory Only Only, Adc Test Lebron Douglas [facility] 1.2.840.114 350.1.13.10 4.2.7.2.686 [id number] [facility] 2019-12-04 14:27:15 2019-12-04 14:42:15 Laboratory Only Only, Adc Test [facility] 1.2.840.114 350.1.13.10 4.2.7.2.686 [id number] 2019-12-04 13:15:00 2019-12-04 13:15:[address] [facility] [id number] [facility] 2019-12-02 15:39:35 2019-12-02 16:43:10 Routine Visit Lebron Douglas [facility] Building 1.2.840.114 350.1.13.10 4.2.7.2.686 [id number] 134 [id number] [facility] 2019-12-02 15:39:35 2019-12-02 16:43:10 Routine Visit Lebron Douglas [facility] [place] nal Building 1.2.840.114 350.1.13.10 4.2.7.2.686 [id number] 134 [id number] 2019-12-02 15:30:00 2019-12-02 15:30:00 Outpatient R LEBRON DOUGLAS [facility] [id number] [facility] 2019-11-25 16:15:00 2019-11-25 16:15:00 Outpatient R DELMI SIMMONS [facility] [id number] [facility] 2019-11-25 14:44:04 2019-11-25 15:21:56 [facility] 1.2.840.114 350.1.13.10 4.2.7.2.686 [id number] [facility] 2019-11-25 14:44:04 2019-11-25 15:21:56 Routine Visit Delmi Simmons [facility] Building 1.2.840.114 350.1.13.10 4.2.7.2.686 [id number] 2019-11-18 14:35:29 2019-11-18 14:50:29 Mixer Foam Rubber Visit 2, Adc Lab [facility] Building 1.2.840.114 350.1.13.10 4.2.7.2.686 [id number] [facility] 2019-11-18 13:25:05 2019-11-18 14:30:28 Routine Visit Lebron Douglas [facility] Building 1.2.840.114 350.1.13.10 4.2.7.2.686 [id number] [facility] 2019-11-18 13:25:05 2019-11-18 14:30:28 Routine Visit Lebron Douglas [facility] 1.2.840.114 350.1.13.10 4.2.7.2.686 [id number] 134 [id number] 2019-11-18 13:15:00 2019-11-18 13:15:00 Out[address]ON [facility] [facility] [id number] [facility] 2019-11-18 00:00:00 2019-11-18 00:00:00 Orders Only Doctor Unassigned, [place] [facility] 1.2840.114 350.1.13.10 4.2.7.2.686 [id number] [id number] [facility] 2019-11-17 00:00:00 2019-11-17 00:00:00 Telephone Lebron Douglas [facility] 1.2.840.114 350.1.13.10 4.2.7.2.686 [id number] 134 [id number] [facility] 2019-11-04 09:30:00 2019-11-04 09:30:00 Outpatient R DELMI SIMMONS [facility] [id number] [facility] 2019-11-04 08:10:18 2019-11-04 08:25:18 Telemedici ne Visit Delmi Simmons [facility] 1.2.840.114 350.1.13.10 4.2.7.2.686 [id number] 134 [id number] [facility] 2019-10-21 08:38:41 2019-10-21 16:28:10 Telemedici ne Visit Lebron Douglas [facility] 1.2.840.114 350.1.13.10 4.2.7.2.686 [id number] 134 [id number] [facility] 2019-10-21 16:00:00 2019-10-21 16:00:00 [address] [facility] [id number] [facility] 2019-10-07 15:48:10 2019-10-12 09:33:01 Routine Visit Troy [facility] 1.2.840.114 350.1.13.10 4.2.7.2.686 [id number] 134 [id number] [facility] 2019-10-07 15:30:00 2019-10-07 15:30:00 Out[address] [facility] [facility] [id number] [facility] 2019-10-05 07:15:00 2019-10-05 09:05:00 [facility] 1.2.840.114 350.1.13.10 4.2.7.2.686 [id number] [facility] 2019-10-05 07:15:00 2019-10-05 09:05:00 Outpatient P LEBRON DOUGLAS [facility] [id number] [facility] 2019-09-27 20:54:00 2019-09-27 23:45:00 Hospital Encounter Lebron Douglas [facility] 1.2.840.114 350.1.13.10 4.2.7.2.686 [id number] [facility] 2019-09-24 08:15:58 2019-09-24 08:30:58 Mixer Foam Rubber Visit 2, Adc Lab [facility] 1.2.840.114 350.1.13.10 4.2.7.2.686 [id number] [facility] 2019-09-24 08:00:00 2019-09-24 08:00:00 [id number] [facility] 2019-09-23 16:34:06 2019-09-23 16:49:06 [facility] 1.2.840.114 350.1.13.10 4.2.7.2.686 [id number] 134 [id number] [facility] 2019-09-23 16:30:00 2019-09-23 16:30:00 [facility] [id number] [facility] 2019-09-18 00:00:00 2019-09-18 00:00:00 Case Management [facility] Building 1.2.840.114 350.1.13.10 4.2.7.2.686 [id number] 134 [id number] [facility] 2019-09-16 09:37:44 2019-09-16 10:31:25 Routine Visit Delmi Simmons [facility] Building 1.2.840.114 350.1.13.10 4.2.7.2.686 [id number] 134 [id number] [facility] 2019-09-16 09:30:00 2019-09-16 09:30:00 Out[address] R TROY DELMI [facility] [id number] [facility] 2019-09-15 00:00:00 2019-09-15 00:00:00 Telephone Troy Delmi [facility] Building 1.2.840.114 350.1.13.10 4.2.7.2.686 [id number] 134 [id number] [facility] 2019-09-03 16:20:00 2019-09-03 16:20:00 Outpatient R MAKENZIE BARRAG[address] [facility] [id number] [facility] 2019-09-02 00:00:00 2019-09-02 00:00:00 Telephone [facility] 1.2.840.114 350.1.13.10 4.2.7.2.686 [id number] 134 [id number] [facility] 2019-08-27 13:02:21 2019-08-27 13:47:21 Mixer Foam Rubber Visit Ultrasound, Deshaun Horn [facility] INSTRUCTIONAL INTERVENTIONIST [facility] 1.840.114 350.1.13.10 4.2.7.2.686 [id number] [facility] 2019-08-27 13:00:00 2019-08-27 13:00:[address] [facility] [id number] [facility] 2019-08-26 12:54:53 2019-08-26 13:20:15 Routine Visit DouglasLebron [facility] 1.840.114 350.1.13.10 4.2.7.2.686 [id number] 134 [id number] [facility] 2019-08-26 13:00:00 2019-08-26 13:00:00 Outpatient R [address]ON [facility]OU[facility] [facility] [id number] [facility] 2019-08-05 15:50:34 2019-08-05 16:05:34 Mixer Foam Rubber Visit 2, Adc Lab Lebron Douglas [facility] 1..840.114 350.1.13.10 4.2.7.2.686 [id number] [facility] 2019-08-05 15:45:00 2019-08-05 15:45:00 Outpatient [address]ON [facility] [facility] [id number] [facility] 2019-08-05 00:00:00 2019-08-05 00:00:00 Orders Only Doctor Unassigned, [place] [facility] 1.840.114 350.1.13.10 4.2.7.2.686 [id number] [facility] 2019-08-04 13:15:00 2019-08-04 13:15:[address] [facility] [id number] [facility] 2019-07-29 08:28:46 2019-07-29 14:15:33 Telemedici ne Visit eLbron Douglas [facility] 1.2.840.114 350.1.13.10 4.2.7.2.686 [id number] 134 [id number] [facility] 2019-07-29 13:15:00 2019-07-29 13:15:00 [facility] [id number] [facility] 2019-07-29 00:00:00 2019-07-29 00:00:00 Telephone Lebron Douglas [facility] 1.2.840.114 350.1.13.10 4.2.7.2.686 [id number] 134 [id number] [facility] 2019-07-24 09:58:50 2019-07-24 11:00:32 Mixer Foam Rubber Visit Ultrasound, Adc Francie Bragg [facility] 1.2.840.114 350.1.13.10 4.2.7.2.686 [id number] 134 [id number] [facility] 2019-07-24 10:00:00 2019-07-24 10:00:[address] [facility] [id number] [facility] 2019-07-21 00:00:00 2019-07-21 00:00:00 Telephone Lebron Douglas [facility] 1.2.840.114 350.1.13.10 4.2.7.2.686 [id number] 134 [id number] [facility] 2019-07-21 00:00:00 2019-07-21 00:00:00 Orders Only Doctor Unassigned, [place] [facility] 1.2.840.114 350.1.13.10 4.2.7.2.686 [id number] [facility] 2019-07-17 00:00:00 2019-07-17 00:00:00 Telephone Douglas, Lebron [facility] Building 1.2.840.114 350.1.13.10 4.2.7.2.686 [id number] 134 [id number] [facility] 2019-07-16 00:00:00 2019-07-16 00:00:00 Telephone Lebron Douglas [facility] Building 1.2.840.114 350.1.13.10 4.2.7.2.686 [id number] 134 [id number] [facility] 2019-07-13 00:00:00 2019-07-13 00:00:00 Telephone Lebron Douglas [facility] Building 1.2.840.114 350.1.13.10 4.2.7.2.686 [id number] 134 [id number] [facility] 2019-07-02 10:45:00 2019-07-02 10:45:00 Outpatient R MISAEL LEBRON [facility] [id number] [facility] 2019-07-02 00:00:00 2019-07-02 00:00:00 Letter (Out) Makenzie Barragan [facility] Office Building One 1.2840.114 350.1.13.10 4.2.7.2.686 [id number] [facility] 2019-07-02 00:00:00 2019-07-02 00:00:00 Telephone Porebecca, Acute Care Clinic [facility] Office Building One 1.2.840.114 350.1.13.10 4.2.7.2.686 [id number] [facility] 2019-07-01 11:09:24 2019-07-01 16:44:45 Telemedici ne Visit Lebron Douglas [facility] Building 1.2.840.114 350.1.13.10 4.2.7.2.686 [id number] 134 [id number] [facility] 2019-07-01 11:26:32 2019-07-01 11:36:04 Nurse Visit Nurse, [facility] Lebron Douglas [facility] Building 1.2.840.114 350.1.13.10 4.2.7.2.686 [id number] [facility] 2019-07-01 10:45:00 2019-07-01 10:45:00 Outpatient R [facility]BRON DOU[facility] [facility] [id number] [facility] 2019-07-01 00:00:00 2019-07-01 00:00:00 Telephone Lebron Douglas [facility] Building 1.2.840.114 350.1.13.10 4.2.7.2.686 [id number] 134 [id number] [facility] 2019-07-01 00:00:00 2019-07-01 00:00:00 Telephone Lebron Douglas [facility] Building 1.2.840.114 350.1.13.10 4.2.7.2.686 [id number] 134 [id number] [facility] 2019-06-04 07:55:14 2019-06-04 10:36:23 Telemedici ne Visit Lebron Douglas [facility] Building 1.2.840.114 350.1.13.10 4.2.7.2.686 [id number] 134 [id number] [facility] 2019-06-04 10:30:00 2019-06-04 10:30:00 Outpatient R [facility]BRON [facility]OU[facility] [facility] [id number] [facility] 2019-05-19 00:00:00 2019-05-19 00:00:00 Telephone Lebron Douglas [facility] Building 1.2.840.114 350.1.13.10 4.2.7.2.686 [id number] 134 [id number] [facility] 2019-05-06 14:46:13 2019-05-06 16:05:53 Initial Visit Lebron Douglas [facility] 1.2.840.114 350.1.13.10 4.2.7.2.686 [id number] 134 [id number] [facility] 2019-05-06 14:30:00 2019-05-06 14:30:00 Outpatient R [address]BRON DOU[facility] [facility] [id number] [facility] 2019-05-06 11:00:00 2019-05-06 11:00:00 Outpatient G_Pappas [facility] [id number] [facility] 2019-04-07 05:50:00 2019-04-07 05:50:00 Outpatient G_Pappas [facility] [id number] [facility] Results Test Description Test Time Test Comments Results Result Co mments Source [facility] IMMUNE [id number] 04:14:36* Test Item Value Reference Range Interpretation Comme nts RHIG CANDIDATE? (test code = 5055) No- see comment Patient is not a candidate for RhIg- Patient is Rh Positive.Performed at [facility] Laboratory Services - [facility] Blood [address] Free: [phone] No. [id number] [facility] and Screen - ONCE [id number] 12:22:38 * Test Item Value Reference Range Interpretation Comme nts ABO & RH (test code = 20) O Positive Performed at [facility] Laboratory [facility] - [facility] Blood [place] [address]Toll Free: [phone] No. [id number] IAT (test code = 1185) Negative Performed at [facility] Laboratory [facility] Blood [place] [address]Toll Free: [phone] No. [id number] [facility] Screen - ONCE [id number] 12:22:38 * Test Item Value Reference Range Interpretation Comme nts ABO & RH (test code = 20) O Positive Performed at [facility] Laboratory Services - [facility] Blood [address] [place] [phone] Free: [phone] No. [id number] IAT (test code = 1185) Negative Performed at [facility] Laboratory Services [facility] Blood [address] [place] [phone] Free: [phone] No. [id number] [facility]/O SPECIFIC [id number] 20:49:00* Test Item Value Reference Range Interpretation Comme nts POCT PH U (test code = 3254) n/a 5-8 POCT U LEUK EST (test code = 3263) n/a Negative - Negative POCT U NIT (test code = 3262) n/a Negative - Negati ve POCT U PROT (test code = 3259) Negative Negative - Negat joe POCT U GLU (test code = 3256) Normal Negative - Negati ve POCT U KETONE (test code = 3258) n/a Negative - Neg ative POCT U BLD (test code = 3257) n/a Negative - Negati ve [facility] URINALYSIS W/O SPECIFIC [id number] 19:29:00* Test Item Value Reference Range Interpretation Comme nts POCT PH U (test code = 3254) n/a 5-8 POCT U LEUK EST (test code = 3263) n/a Negative - Negative POCT U NIT (test code = 3262) n/a Negative - Negati ve POCT U PROT (test code = 3259) negative Negative - Negat joe POCT U GLU (test code = 3256) negative Negative - Negati ve POCT U KETONE (test code = 3258) n/a Negative - Neg ative POCT U BLD (test code = 3257) n/a Negative - Negati ve [facility] W/O SPECIFIC [id number] 17:55:00* Test Item Value Reference Range Interpretation Comme nts POCT PH U (test code = 3254) n/a 5-8 POCT U LEUK EST (test code = 3263) n/a Negative - Negative POCT U NIT (test code = 3262) n/a Negative - Negati ve POCT U PROT (test code = 3259) Negative Negative - Negat joe POCT U GLU (test code = 3256) Normal Negative - Negati ve POCT U KETONE (test code = 3258) n/a Negative - Neg ative POCT U BLD (test code = 3257) n/a Negative - Negati ve [facility] URINALYSIS W/O SPECIFIC [id number] 17:55:00* Test Item Value Reference Range Interpretation Comme nts POCT PH U (test code = 3254) n/a 5-8 POCT U LEUK EST (test code = 3263) n/a Negative - Negative POCT U NIT (test code = 3262) n/a Negative - Negati ve POCT U PROT (test code = 3259) Negative Negative - Negat joe POCT U GLU (test code = 3256) Normal Negative - Negati ve POCT U KETONE (test code = 3258) n/a Negative - Neg ative POCT U BLD (test code = 3257) n/a Negative - Negati ve [facility] URINALYSIS W/O SPECIFIC [id number] 17:55:00* Test Item Value Reference Range Interpretation Comme nts POCT PH U (test code = 3254) n/a 5-8 POCT U LEUK EST (test code = 3263) n/a Negative - Negative POCT U NIT (test code = 3262) n/a Negative - Negati ve POCT U PROT (test code = 3259) Negative Negative - Negat joe POCT U GLU (test code = 3256) Normal Negative - Negati ve POCT U KETONE (test code = 3258) n/a Negative - Neg ative POCT U BLD (test code = 3257) n/a Negative - Negati ve [facility] URINALYSIS W/O SPECIFIC [id number] 16:17:00* Test Item Value Reference Range Interpretation Comme nts POCT PH U (test code = 3254) n/a 5-8 POCT U LEUK EST (test code = 3263) n/a Negative - Negative POCT U NIT (test code = 3262) n/a Negative - Negati ve POCT U PROT (test code = 3259) negative Negative - Negat joe POCT U GLU (test code = 3256) negative Negative - Negati ve POCT U KETONE (test code = 3258) n/a Negative - Neg ative POCT U BLD (test code = 3257) n/a Negative - Negati ve [facility] W/O SPECIFIC [id number] 15:42:00* Test Item Value Reference Range Interpretation Comme nts POCT PH U (test code = 3254) N/A 5-8 POCT U LEUK EST (test code = 3263) N/A Negative - Negative POCT U NIT (test code = 3262) N/A Negative - Negati ve POCT U PROT (test code = 3259) NEGATIVE Negative - Negat joe POCT U GLU (test code = 3256) NEGATIVE Negative - Negati ve POCT U KETONE (test code = 3258) N/A Negative - Neg ative POCT U BLD (test code = 3257) N/A Negative - Negati ve [facility] W/O SPECIFIC [id number] 20:18:00* Test Item Value Reference Range Interpretation Comme nts POCT PH U (test code = 3254) 6 mg/dl 5-8 POCT U LEUK EST (test code = 3263) Negtaive Negative - Negative POCT U NIT (test code = 3262) Negative Negative - Negati ve POCT U PROT (test code = 3259) Trace Negative - Negat joe POCT U GLU (test code = 3256) Negative Negative - Negati ve POCT U KETONE (test code = 3258) Small Negative - Neg ative POCT U BLD (test code = 3257) Negative Negative - Negati ve [facility] [id number] 20:17:00* Test Item Value Reference Range Interpretation Comme nts POCT PREG (test code = 1605) Positive On board controls acceptable with C Line (test code = 3574) Yes POCT PREG LOT # (test code = 3575) POCT PREG TEST DATE ( test code = 3576) [facility] Notes Date/Time Note Provider Source 2023-05-23 09:45:00 [id number] ormatting of this note is different from the original.Images from the original note were not included.Venipuncture collection performed by clean technique on the left anticubitus. Total of 1 attempts were made. Slight pressure and a bandage/dressing were applied to the site(s). The patient experienced no complications. The following specimens were processed according to instructions and sent to [facility] laboratories per lab order on 05/23/2023 :LT BLUESST 1REDLAVPPTDK GREEN (LiHep)DK GREEN (SodH)GRAYDK BLUE (K2)DK BLUE (S)ACDBlood CultureNIPT/NTD [id number] YirfLQ4448-56-07T65:40:56Nurse NoteTXT1.2.840.757007.1.13.104.2.7.2.50109 9|[id number] for patient fdyu07547-5Iaxur NoteLNNARRATIVEFormatted C-CDA narrative text[address] Lp[id number] OMGPWDBNCUEHBCFT8817-40-09B37:40:561.2.840 .636739.1.72.3.15|1.2.840.199229.1.13.104. [id number] [facility]"
--- NOTE | 2023-08-23 12:15 | RAD REPORT ---
EXAM DESCRIPTION: RAD - Lumbar Spine 3 Views - 08/23/2023 12:00 pm CLINICAL HISTORY: PAIN COMPARISON: No comparisons TECHNIQUE: Lumbar spine, 3 views. FINDINGS: Lumbar vertebral bodies are normal in height and alignment. No fracture or acute bony proc ess seen. Mild degenerative changes most notably at the L5-S1 facet articulations. No disc space narr owing. No other significant findings. IMPRESSION: No acute osseous abnormality. Mild facet remodeling at L5-S1.
[2023-08-23] MEDS ORDERED: LIDOCAINE 4% PATCH ONE (13:26)
[2023-08-23] MEDS ORDERED: ACETAMINOPHEN 500 MG TAB ONE (13:26)
[2023-08-23] MEDS ORDERED: methocarbamoL 500 MG TAB ONE (13:26)
--- NOTE | 2023-08-23 13:55 | EDPHYS ---
Physician Documentation [facility] Name: Martha Castaneda Age: 27 yrs Sex: Female : 1995 Arrival Date: 08/23/2023 Time: 10:45 Bed 18 Private MD: ED Physician Mark Flanagan HPI: 08/22 12:03 This 27 yrs old Female presents to ER via Ambulatory with complaints of Back ec2 Pain. 12:03 Patient arrives today for evaluation of low back pain. States that she was stretching ec2 and subsequently felt that she pulled something. [place]ippah a pop. Patient reports history of sciatica, previous L-spine surgery. Reports she has not taken any medications for pain.. Historical: - Allergies: 11:04 No Known Allergies; hb - Home Meds: 11:04 None [Active]; hb - PMHx: 11:04 None; hb - PSHx: 11:04 Back; hb - Immunization history:: Adult Immunizations up to date. - Infectious Disease History:: Denies. - Social history:: Smoking status: Patient denies any tobacco usage or history of. ROS: 12:03 Constitutional: as per hpi ec2 Exam: 12:03 Constitutional: GEN: NAD Head: atraumatic Eyes: EOMI Ears: External ears are ec2 normal. CV: regular rate LUNGS: no respiratory distress ABD: non-distended SKIN: no evidence of rashes MSK: no evidence of trauma, no C/T/L-spine deformities, L-spine TTP, no crepitus NEURO: moves all extremities equally Vital Signs: 11:02 BP 115 / 78; Pulse 89; Resp 16; Temp 97.4(TE); Pulse Ox 97% on R/A; Weight 68.04 kg; hb Height 5 ft. 3 in. ; Pain 4/10; 14:09 BP 109 / 63; Pulse 66; Resp 16; Pulse Ox 96% ; nj1 11:02 Body Mass Index 26.57 (68.04 kg, 160.02 cm) hb 11:02 Pain Scale: Adult hb MDM: 11:19 Patient medically screened. ec2 12:03 Data reviewed: vital signs. ED course: Patient arrives today for lower back pain. ec2 Examination remarkable for well-appearing nontoxic and visualized on the skin findings as above. Will obtain radiograph of the L-spine. Differential diagnosis include lumbar strain, sciatica, disc herniation. 12:26 ED course: X-ray of the lumbar spine shows no acute traumatic pathology. Will discharge ec2 home, will prescribe the patient Robaxin, instructed on appropriate exercises for low back pain. . 08/22 11:18 Order name: Lumbar Spine (3 Views) XRAY; Complete Time: 12:26 ec2 Administered Medications: 13:30 Drug: Methocarbamol PO 500 mg PO once Route: PO; nj1 14:10 Follow up: Response: No adverse reaction nj1 13:30 Drug: Acetaminophen PO 1000 mg PO once Route: PO; nj1 14:10 Follow up: Response: No adverse reaction nj1 13:33 Drug: Lidoderm Topical Patch 5 % (700 mg/patch) 1 patches Topical once; leave on for 12 nj1 hours; cover most painful area; may cut into smaller pieces Route: Topical; Site: affected area; 14:09 Follow up: Response: No adverse reaction nj1 Disposition Summary: 08/23/23 13:54 Discharge Ordered Notes: Location: Home ec2 Condition: Stable ec2 Diagnosis - Sciatica, left side ec2 Followup: ec2 - With: Private Physician - When: - Reason: Re-evaluation by your physician Discharge Instructions: - Discharge Summary Sheet ec2 - Sciatica ec2 - Back Exercises, [id number] ec2 Forms: - Medication Reconciliation Form ec2 - Antibiotic Education ec2 - Prescription Opioid Use ec2 - Patient Portal Instructions ec2 - Leadership Thank You Letter ec2 Prescriptions: - methocarbamol 500 mg Oral tablet - take 2 tablets ORAL route 4 times per day; 20 tablet; Refills: 0, Product ec2 Selection Permitted Signatures: Dispatcher [employer] Kay Camarena RN RN Jillian Sy RN RN nj1 Mark Flanagan MD MD ec2 Corrections: (The following items were deleted from the chart) 11:18 11:18 Lumbar Spine 3 Views+[email or web address] ordered. BRITTON JARQUIN
--- NOTE | 2023-08-23 13:55 | ER ---
Nurse's Notes [facility] Name: Martha Castaneda Age: 27 yrs Sex: Female : 1995 Arrival Date: 08/23/2023 Time: 10:45 Bed 18 Private MD: Diagnosis: Sciatica, left side Presentation: 08/22 11:02 Chief complaint: Low back pain that radiates to left buttock and calf since this morning. Coronavirus screen: At this time, the client does not indicate any symptoms associated with coronavirus-19. Ebola Screen: No symptoms or risks identified at this time. Initial Sepsis Screen: Does the patient meet any 2 criteria? No. Patient's initial sepsis screen is negative. Does the patient have a suspected source of infection? No. Patient's initial sepsis screen is negative. Risk Assessment: Do you want to hurt yourself or someone else? Patient reports no desire to harm self or others. Onset of symptoms was August 23, 2023. 11:02 Method Of Arrival: Ambulatory 11:02 Acuity: QUIQUE 3 hb Triage Assessment: 11:04 General: Appears in no apparent distress. uncomfortable, Behavior is calm, cooperative. hb Pain: Pain currently is 4 out of 10 on a pain scale. Neuro: Level of Consciousness is awake, alert, obeys commands, Oriented to person, place, time, situation. Cardiovascular: Patient's skin is warm and dry. Respiratory: Respiratory effort is even, unlabored, Respiratory pattern is regular, symmetrical. Musculoskeletal: Reports Low back pain that radiates to left buttock and calf. Historical: - Allergies: 11:04 No Known Allergies; hb - Home Meds: 11:04 None [Active]; hb - PMHx: 11:04 None; hb - PSHx: 11:04 Back; hb - Immunization history:: Adult Immunizations up to date. - Infectious Disease History:: Denies. - Social history:: Smoking status: Patient denies any tobacco usage or history of. Screenin:43 [facility] ED Fall Risk Assessment (Adult) History of falling in the last 3 months, nj1 including since admission No falls in past 3 months (0 pts) Confusion or Disorientation No (0 pts) Intoxicated or Sedated No (0 pts) Impaired Gait No (0 pts) Mobility Assist Device Used No (0 pt) Altered Elimination No (0 pt) Score/Fall Risk Level 0 - 2 = Low Risk Oriented to surroundings, Maintained a safe environment, Hourly rounding (assess needs \T\ fall precautionary measures) done. Abuse screen: Denies threats or abuse. Denies injuries from another. Nutritional screening: No deficits noted. Tuberculosis screening: No symptoms or risk factors identified. Assessment: 13:38 General: Appears in no apparent distress. uncomfortable, Behavior is calm, cooperative, nj1 appropriate for age. Pain: Complains of pain in back Pain currently is 4 out of 10 on a pain scale. Neuro: Level of Consciousness is awake, alert, obeys commands, Oriented to person, place, time, situation, Moves all extremities. Speech is normal. Cardiovascular: Patient's skin is warm and dry. Respiratory: Airway is patent Respiratory effort is even, unlabored. Musculoskeletal: Reports pain in back since this morning. Pain is 4 out of 10 on a pain scale. 14:09 Reassessment: Patient appears in no apparent distress at this time. Patient is alert, nj1 oriented x 3, equal unlabored respirations, skin warm/dry/pink. Vital Signs: 11:02 BP 115 / 78; Pulse 89; Resp 16; Temp 97.4(TE); Pulse Ox 97% on R/A; Weight 68.04 kg; hb Height 5 ft. 3 in. ; Pain 4/10; 14:09 BP 109 / 63; Pulse 66; Resp 16; Pulse Ox 96% ; nj1 11:02 Body Mass Index 26.57 (68.04 kg, 160.02 cm) hb 11:02 Pain Scale: Adult hb ED Course: 10:52 Patient arrived in ED. mg5 10:53 Mark Flanagan MD is Attending Physician. ec2 11:02 Arm band placed on. hb 11:04 Triage completed. hb 12:01 Lumbar Spine (3 Views) XRAY In Process Unspecified. EDMS 12:53 Jillian Sy, RN is Primary Nurse. nj1 13:45 Patient has correct armband on for positive identification. Bed in low position. Call nj1 light in reach. Adult w/ patient. Provided Education on: call light, fall precautions. 14:10 No provider procedures requiring assistance completed. Patient did not have IV access nj1 during this emergency room visit. Administered Medications: 13:30 Drug: Methocarbamol PO 500 mg PO once Route: PO; nj1 14:10 Follow up: Response: No adverse reaction nj1 13:30 Drug: Acetaminophen PO 1000 mg PO once Route: PO; nj1 14:10 Follow up: Response: No adverse reaction nj1 13:33 Drug: Lidoderm Topical Patch 5 % (700 mg/patch) 1 patches Topical once; leave on for 12 nj1 hours; cover most painful area; may cut into smaller pieces Route: Topical; Site: affected area; 14:09 Follow up: Response: No adverse reaction nj1 Medication: 14:10 VIS not applicable for this client. nj1 Outcome: 13:54 Discharge ordered by . ec2 14:10 Discharged to home ambulatory, with family, nj1 14:10 Condition: stable 14:10 Discharge instructions given to patient, Instructed on discharge instructions, follow up and referral plans. medication usage, Demonstrated understanding of instructions, follow-up care, medications, Prescriptions given X 1, 14:11 Patient left the ED. nj1 Signatures: Dispatcher [employer] EDKay Kruger RN RN Jillian Sy RN RN hi1 Jessee Jazmin mg5 Mark Flanagan MD MD ec2 Corrections: (The following items were deleted from the chart) 11:06 11:02 BP 115 / 78; Pulse 89bpm; Resp 16bpm; Pulse Ox 97% RA; Temp 97.4F Temporal; Pain hb 4/10, Adult; hb
[2023-08-23 15:07] VITALS: BP 109/63; TEMP 97.4; O2SAT 96
== END 2023-08-23 14:11 | disposition home or self-care (01) ==
LOC: ER 10:45
DX: M54.32 Sciatica, left side (principal)
CPT/HCPCS: 72100; 99283; J2001

== ENCOUNTER 2024-12-31 09:26 | Emergency (ER) | payer BC, SELFPAY ==
[2024-12-31] MEDS ORDERED: ONDANSETRON 4 MG/2 ML VIAL ONE (09:49)
[2024-12-31] MEDS ORDERED: NA CHLORIDE 0.9% 1,000 ML ONE (09:49)
[2024-12-31 10:11] LABS: Absolute Lymphocytes (CBC) 1.4 K/uL (0.7-4.9); Hematocrit 40.6 % (36.0-45.0); Hemoglobin 13.9 g/dL (12.0-15.0); MCH 29.7 pg (27.0-35.0); MCHC 34.3 g/dL (32.0-36.0); MCV 86.7 fL (80-100); MPV 8.2 fL (7.6-11.3); Nucleated RBC Absolute Count 0.0 (0-0); Nucleated Red Blood Cells % 0.1 % (0-0); RBC Red Blood Cell Count 4.68 M/uL (3.86-4.86); White Blood Count 7.30 thou/uL (4.3-10.9)
[2024-12-31 10:29] LABS: Sqamous Epithelial <5 /HPF (None Seen); Urine Crystals Unidentified Few /HPF (None Seen); Urine Culture Reflex Order NOT NEEDED; Urine Microscopic Reflex YN ORDER UMIC
[2024-12-31 10:44] LABS: ALT/SGPT 25.0 U/L (13-56); AST/SGOT 11.0 U/L (15-37); Albumin 3.9 g/dL (3.4-5.0); Albumin/Globulin Ratio 0.9 (1.1-1.8); Alkaline Phosphatase 56.0 U/L (45-117); Anion Gap 9.6 mEq/L (5.0-15.0); BUN Blood Urea Nitrogen 7.0 mg/dL (7-18); Globulin 4.3 g/dL (2.3-3.5); Glucose Level 105.0 mg/dL (74-106); Lipase 33.0 U/L (13-75); Potassium 3.6 mEq/L (3.5-5.1)
--- NOTE | 2024-12-31 11:08 | RAD REPORT ---
EXAMINATION: CT ABDOMEN AND PELVIS WITH CONTRAST CLINICAL INDICATION: PAIN TECHNIQUE: CT abdomen and pelvis was performed, after the administration of IV contrast, as per [facility] protocol. Axial, sagittal and coronal reconstructions were obtained. One or more of the following dose reduction techniques were used: Automated exposure control, adjustment of the mA and k V according to patient size, and iterative reconstruction. Unless otherwise specified, incidental findings do not require dedicated imaging follow-up. COMPARISON: No prior exam. FINDINGS: LOWER CHEST: The visualized lung bases are clear. LIVER: Normal in size and contour. No focal lesion. Grossly unremarkable gallbladder. SPLEEN: Normal size. No focal lesion. PANCREAS: No mass, ductal dilation, or saroj-pancreatic fluid. ADRENALS: Normal; no mass. KIDNEYS: Normal size and contour. No hydronephrosis. Small defects are present in the inferior left k idney probably from previous infection. GASTROINTESTINAL TRACT: No evidence of free air, significant intra-abdominal free fluid, bowel obstru ction or abscess. APPENDIX: Normal appendix. LYMPH NODES: No lymphadenopathy. MUSCULOSKELETAL: No acute or suspicious osseous abnormality. ADDITIONAL FINDINGS: Trace pelvic free fluid. IMPRESSION: No acute or concerning abnormalities seen in the abdomen or pelvis.
--- NOTE | 2024-12-31 11:12 | ER ---
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 patient currently rates her pain as a 4/10 on the pain scale. Coronavirus screen: At this time, the client does not indicate any symptoms associated with coronavirus-19. Ebola Screen: No symptoms or risks identified at this time. Initial Sepsis Screen: Does the patient meet any 2 criteria? No. Patient's initial sepsis screen is negative. Does the patient have a suspected source of infection? No. Patient's initial sepsis screen is negative. Risk Assessment: Do you want to hurt yourself or someone else? Patient reports no desire to harm self or others. Onset of symptoms was December 31, 2024. 09:37 Method Of Arrival: Ambulatory ap3 09:37 Acuity: QUIQUE 3 ap3 Triage Assessment: 09:40 General: Appears in no apparent distress. Behavior is calm, cooperative, appropriate ap3 for age. Pain: Complains of pain in left lower quadrant Pain currently is 4 out of 10 on a pain scale. Neuro: Level of Consciousness is awake, alert, obeys commands, Oriented to person, place, time, situation, Appropriate for age. Cardiovascular: Patient's skin is warm and dry. Respiratory: Airway is patent Respiratory effort is even, unlabored, Respiratory pattern is regular, symmetrical. GI: Reports lower abdominal pain, cramping, diarrhea. 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 - Infectious Disease History:: Denies. - Social history:: Smoking status: Reported history of juuling and/or vaping. Screenin:40 [facility] ED Fall Risk Assessment (Adult) History of falling in the last 3 months, ap3 including since admission No falls in past 3 months (0 pts) Confusion or Disorientation No (0 pts) Intoxicated or Sedated No (0 pts) Impaired Gait No (0 pts) Mobility Assist Device Used No (0 pt) Altered Elimination No (0 pt) Score/Fall Risk Level 0 - 2 = Low Risk Oriented to surroundings, Maintained a safe environment, Educated pt \T\ family on fall prevention, incl call for assistance when getting out of bed, Assessed \T\ reinforced patient's understanding of fall precautions, Hourly rounding (assess needs \T\ fall precautionary measures) done, Used ambulatory aids as needed (educated on \T\ assisted with). Abuse screen: Denies threats or abuse. Nutritional screening: No deficits noted. Tuberculosis screening: No symptoms or risk factors identified. Assessment: 09:40 General: SEE TRIAGE NOTE. bp 10:31 Reassessment: No changes from previously documented assessment. Patient is alert, bp oriented x 3, equal unlabored respirations, skin warm/dry/pink. 11:21 Reassessment: Patient appears in no apparent distress at this time. Patient and/or db family updated on plan of care and expected duration. Pain level reassessed. Patient is alert, oriented x 3, equal unlabored respirations, skin warm/dry/pink. Neuro: Level of Consciousness is awake, alert, obeys commands, Oriented to person, place, time, situation. Respiratory: Airway is patent Respiratory effort is even, unlabored, Respiratory pattern is regular, symmetrical. Vital Signs: 09:37 BP 139 / 95; Pulse 84; Resp 17; Temp 98.3; Pulse Ox 100% ; Weight 70.31 kg; Height 5 ap3 ft. 4 in. ; Pain 4/10; 10:30 BP 105 / 91; Pulse 81; Resp 16; Pulse Ox 100% ; bp 11:16 BP 112 / 67; Pulse 56; Resp 16; Pulse Ox 100% on R/A; db 09:37 Body Mass Index 26.61 (70.31 kg, 162.56 cm) ap3 09:37 Pain Scale: Adult ap3 ED Course: 09:29 Patient arrived in ED. mr 09:30 [facility]5 09:30 Angelina Bhardwaj MD is Attending Physician. dr5 09:32 Francois Lee, RN is Primary Nurse. bp 09:39 Triage completed. ap3 09:41 Arm band placed on right wrist. ap3 09:59 Initial lab(s) drawn, by me, sent to lab. Urine collected: clean catch specimen, clear. bp Inserted saline lock: 20 gauge in left forearm, using aseptic technique. Blood collected. Flushed with 10 mL NS. 10:31 Patient has correct armband on for positive identification. bp 10:50 Abdomen In Process Unspecified. EDMS 11:21 Provided Education on: DISCHARGE AND FOLLOWUP. Pulse ox on. NIBP on. Warm blanket db given. Pillow given. 11:21 No provider procedures requiring assistance completed. IV discontinued, intact, db bleeding controlled, No redness/swelling at site. Administered Medications: 09:59 Drug: Ondansetron IVP 4 mg IVP once; over 2 minutes Route: IVP; Site: left forearm; bp 11:23 Follow up: Response: No adverse reaction db 09:59 Drug: NS 0.9% IV 1000 ml IV at 1 bolus Per protocol; to be given as a bolus over 60 bp minutes Route: IV; Rate: 1 bolus; Site: left forearm; 11:22 Follow up: Response: No adverse reaction; IV Status: Completed infusion; IV Intake: db 1000ml Medication: 11:21 VIS not applicable for this client. db Intake: 11:22 IV: 1000ml; Total: 1000ml. db Outcome: 11:11 Discharge ordered by . dr5 11:21 Discharged to home ambulatory, db 11:21 Condition: stable 11:21 Discharge instructions given to patient, Instructed on discharge instructions, follow up and referral plans. Prescriptions given X 2, 11:23 Patient left the ED. db Signatures: Dispatcher [employer] EDSC Terra Young, Reg Francois Luz, RN RN Frida Leung RN RN ap3 Rebekah Gilliam, RUTH RN db Zachary Arellano, DIRECTOR [facility]-C DIRECTOR [facility]-Cdr5
--- NOTE | 2024-12-31 11:12 | EDPHYS ---
Physician Documentation [facility] Name: Martha Castaneda Age: 29 yrs Sex: Female : 1995 Arrival Date: 12/31/2024 Time: 09:26 Bed 5 Private MD: ED Physician Angelina Bhardwaj HPI: 12/31 11:12 This 29 yrs old Female presents to ER via Ambulatory with complaints of dr5 Abdominal Pain, Diarrhea. 11:12 The patient presents with abdominal pain in the left lower quadrant. Onset: The dr5 symptoms/episode began/occurred acutely. Patient is a 29-year-old female with no past medical history, with left lower quadrant abdominal pain that started this morning. Patient reports that she had a couple episodes of diarrhea that alleviated her abdominal pain. Patient denies chest pain, shortness of breath, nausea, vomiting, or fever. 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 - Infectious Disease History:: Denies. - Social history:: Smoking status: Reported history of juuling and/or vaping. ROS: 11:12 Constitutional: as per hpi dr5 Exam: 11:12 Constitutional: This is a well developed, well nourished patient who is awake, alert, dr5 and in no acute distress. Head/Face: Normocephalic, atraumatic. Eyes: Pupils equal round and reactive to light, extra-ocular motions intact. Lids and lashes normal. Conjunctiva and sclera are non-icteric and not injected. Cornea within normal limits. Periorbital areas with no swelling, redness, or edema. Chest/axilla: Normal chest wall appearance and motion. Nontender with no deformity. No lesions are appreciated. Cardiovascular: Regular rate and rhythm with a normal S1 and S2. Normal PMI, no JVD. No pulse deficits. Respiratory: Lungs have equal breath sounds bilaterally, clear to auscultation. No rales, rhonchi or wheezes noted. No increased work of breathing, no retractions or nasal flaring. Abdomen/GI: Soft, non-tender, non-distended Back: No spinal tenderness. No costovertebral tenderness. Full range of motion. Skin: Warm, dry with normal turgor. Normal color with no rashes, no lesions, and no evidence of cellulitis. MS/ Extremity: Pulses equal, no cyanosis. Neurovascular intact. Full, normal range of motion. Neuro: Awake and alert, GCS 15, oriented to person, place, time, and situation. Cranial nerves II-XII grossly intact. Motor strength 5/5 in all extremities. Sensory grossly intact. Cerebellar exam normal. Normal gait. Vital Signs: 09:37 BP 139 / 95; Pulse 84; Resp 17; Temp 98.3; Pulse Ox 100% ; Weight 70.31 kg; Height 5 ap3 ft. 4 in. ; Pain 4/10; 10:30 BP 105 / 91; Pulse 81; Resp 16; Pulse Ox 100% ; bp 11:16 BP 112 / 67; Pulse 56; Resp 16; Pulse Ox 100% on R/A; db 09:37 Body Mass Index 26.61 (70.31 kg, 162.56 cm) ap3 09:37 Pain Scale: Adult ap3 MDM: 09:30 Medical Screening Exam initiated dr5 11:12 Differential diagnosis: appendicitis, cholecystitis, Cholelithiasis, diverticulitis, dr5 gastritis, urinary tract infection, Gastroenteritis. Data reviewed: vital signs, nurses notes, lab test result(s), CBC, white blood cell count, hemoglobin, hematocrit, platelets, electrolytes, sodium, potassium, chloride, serum bicarbonate, BUN, creatinine, serum glucose, urinalysis, radiologic studies, CT scan. Consideration of Admission/Observation Escalation of care including admission/observation considered. Escalation considered patient found to have appendicitis or diverticulitis with perforation. I considered the following discharge prescriptions or medication management in the emergency department I discussed and recommended Over The Counter medications, Medications were administered in the Emergency Department. See MAR. Care significantly affected by the following Social Determinants of Health: Poor access to healthcare and/or lack of insurance, Poor access to transportation, Problems related to employment. Counseling: I had a detailed discussion with the patient and/or guardian regarding the historical points, exam findings, and any diagnostic results supporting the discharge/admit diagnosis, the presence of at least one elevated blood pressure reading (>120/80) during this emergency department visit, lab results, radiology results, the need for outpatient follow up, for definitive care, a family practitioner, to return to the emergency department if symptoms worsen or persist or if there are any questions or concerns that arise at home. Medication response: Zofran, normal saline. Response to treatment: the patient's symptoms have resolved after treatment, the patient is now symptom free. Special discussion: I discussed with the patient/guardian in detail that at this point there is no indication for admission to the hospital. It is understood, however, that if the symptoms persist or worsen the patient needs to return immediately for re-evaluation. Based on the history and exam findings, there is no indication for further emergent testing or inpatient evaluation. I discussed with the patient/guardian the need to see the fill technician for further evaluation of the symptoms. I discussed with the patient/guardian the need to see the primary care provider for further evaluation of the symptoms. ED course: Will have patient follow-up with primary care doctor this week. Patient remains pain-free. Will give patient Zofran and tramadol to help with nausea and pain. All question answered. Strict ER precautions given. All CT and lab results printed and given to patient to take with her.. 12/31 10:09 Order name: Comprehensive Metabolic Panel; Complete Time: 11:01 EDMS 12/31 10:09 Order name: Lipase; Complete Time: 11:01 EDMS 12/31 10:09 Order name: CBC with Automated Diff EDMS 12/31 10:09 Order name: UA Rfx Bimal Cult if indicated; Complete Time: 10:37 EDMS 12/31 10:09 Order name: Test, Urine; Complete Time: 10:37 EDMS 12/31 10:12 Order name: CBC with Automated Diff; Complete Time: 10:14 EDMS 12/31 09:45 Order name: Abdomen ; Complete Time: 11:11 EDMS 12/31 09:38 Order name: IV Saline Lock; Complete Time: :59 dr5 12/31 09:38 Order name: Labs collected and sent; Complete Time: :59 dr5 Administered Medications: Drug: Ondansetron IVP 4 mg IVP once; over 2 minutes Route: IVP; Site: left forearm; bp 11:23 Follow up: Response: No adverse reaction db : Drug: NS 0.9% IV 1000 ml IV at 1 bolus Per protocol; to be given as a bolus over 60 bp minutes Route: IV; Rate: 1 bolus; Site: left forearm; 11:22 Follow up: Response: No adverse reaction; IV Status: Completed infusion; IV Intake: db 1000ml Disposition Summary: 12/31/24 11:11 Discharge Ordered Notes: Location: Home dr5 Condition: Stable dr5 Diagnosis - Left lower quadrant abdominal tenderness dr5 Followup: dr5 - With: Emergency Department - When: As needed - Reason: Worsening of condition Followup: dr5 - With: Private Physician - When: 1 - 2 days - Reason: Recheck today's complaints, Continuance of care, Re-evaluation by your physician Discharge Instructions: - Discharge Summary Sheet dr5 - Abdominal Pain, Adult dr5 - Viral Gastroenteritis, Adult dr5 Forms: - Medication Reconciliation Form dr5 - Prescription Opioid Use dr5 - Patient Portal Instructions dr5 - Leadership Thank You Letter dr5 Prescriptions: - Zofran 4 mg Oral Tablet - take 1 tablet ORAL route every 12 hours As needed; 20 tablet; Refills: 0, dr5 Product Selection Permitted - Tramadol 50 mg Oral Tablet - take 1 tablet ORAL route every 8 hours as needed; 12 tablet; Refills: 0, dr5 Product Selection Permitted Signatures: Dispatcher [employer] EDFrancois Barry, RN RN Frida Leung RN RN ap3 Zachary Arellano, [employer]ISTRIES DIRECTOR-C [employer]RIES DIRECTOR-Cdr5 Rebekah Gilliam RN db Corrections: (The following items were deleted from the chart) 10:15 09:39 Abdomen Pelvis W Con+CT.RAD.BRZ ordered. EDMS EDMS 10:40 09:39 UA Rfx Bimal Cult if indicated+U.LAB.BRZ ordered. EDMS EDMS 10:40 09:39 Test, Urine+UC.LAB.BRZ ordered. EDMS EDMS 10:41 09:39 CBC+H.LAB.BRZ ordered. EDMS EDMS 10:41 09:39 COMPREHENSIVE METABOLIC PANEL+C.LAB.BRZ ordered. EDMS EDMS 10:41 09:39 LIPASE+C.LAB.BRZ ordered. EDMS EDMS
[2024-12-31 11:28] VITALS: TEMP 98.3; O2SAT 100
[2024-12-31 11:30] VITALS: BP 112/67
== END 2024-12-31 11:23 | disposition home or self-care (01) ==
LOC: ER 09:26
DX: R10.814 Left lower quadrant abdominal tenderness (principal); R19.7 Diarrhea, unspecified
CPT/HCPCS: 36415; 74177; 80053; 81001; 81025; 83690; 85025; 96361; 96374; 99284; J2405; J7030; Q9967